=== PATIENT | female | born 2005 | race African-American/Black ===

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

== ENCOUNTER 2023-03-09 14:26 | Outpatient (AMB) | payer BC, SELFPAY ==
--- NOTE | 2023-03-09 14:27 | A.OFFVIS_ITS ---
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 Accompanied by: Self / Same As Patient Allergies Seasonal Allergies Allergy (Mild, Verified 03/09/23 14:28) Itchy Eyes pet dander Allergy (Mild, Uncoded 03/09/23 14:28) itchy Medication List - Last Reconciled 03/09/23 by Etelvina Ramirez CNM etonogestrel-ethinyl estradiol 0.12-0.015 mg/24 hr 1 vag ring vaginal Q4W 3 weeks Is last menstrual period known: Yes Last menstrual period: 02/26/23 HPI 3 month CRISTAL HPI Details Patient is here for test of cure for chlamydia she is using the NuvaRing and feeling very good about it she does her best to keep it on schedule and the only thing in reviewing past uses that she got her last period on the 1 day after removing the NuvaRing in she inserted the new NuvaRing on the . (I reminded the patient only leave a NuvaRing out for 7 days before replacing the new 1 so she does not increase her chance of getting . Reviewed whether not her partner said been treated and the person she thinks she acquired the chlamydia from said that he went and got tested and was negative but she is not planning to be with him discussed condoms for safer sex at any rate. PFSH Medical History Depression Family History Family/Other Breast cancer Female Reproductive History Menstrual Age of Menarche: 8 Date of last menstrual period: 02/26/23 Physical Exam Vital Signs: BMI result Body Mass Index 27.8 External Female Exam: normal external appearance and normal appearance of the urethra Speculum Exam - Vagina: normal appearance of the vagina and normal vaginal discharge Speculum Exam - Cervix: normal appearance of the cervix and Cervical os closed Assessment & Plan Assessment & Plan (1) Chlamydia infection: Comment: Diagnosed and treated at her school at the beginning of November 2022; test of cure done 12/21/2022 was positive. Patient was treated 12/22/2022 and because there was a possibility of from unprotected sex she was treated with Zithromax instead of doxy Cyclen. Test of cure is scheduled for 03/09/2023. Code(s): A74.9 - Chlamydial infection, unspecified (2) Screen for sexually transmitted diseases: Code(s): Z11.3 - Encounter for screening for infections with a predominantly sexual mode of transmission (3) Encounter for surveillance of nuvaring: Code(s): Z30.49 - Encounter for surveillance of other contraceptives Plan Patient is here for test of cure for chlamydia she is using the NuvaRing and feeling very good about it she does her best to keep it on schedule and the only thing in reviewing past uses that she got her last period on the 1 day after removing the NuvaRing in she inserted the new NuvaRing on the . (I reminded the patient only leave a NuvaRing out for 7 days before replacing the new 1 so she does not increase her chance of getting . Reviewed whether not her partner said been treated and the person she thinks she acquired the chlamydia from said that he went and got tested and was negative but she is not planning to be with him discussed condoms for safer sex at any rate. Orders: Orders Bacterial Vaginosis Panel Today Z11.3 - Encounter for screening for infections with a predominantly sexual mode of transmission CT NG by PCR Today Z11.3 - Encounter for screening for infections with a predominantly sexual mode of transmission Medications: Refilled etonogestrel-ethinyl estradiol 0.12-0.015 mg/[address] for 3 weeks of a 4-week cycle( 21 days in, 7 days out....) 1 vag ring vaginal Q4W 3 weeks 3 ea 4RF Coding Level of Care Code Est Pt Level 3 (67591) Diagnoses Chlamydia infection A74.9 Screen for sexually transmitted diseases Z11.3 Encounter for surveillance of nuvaring Z30.49
[2023-03-09 14:28] VITALS: BMI 27.8
== END 2023-03-09 15:05 | disposition home or self-care (01) ==
LOC: HO.HWS 14:27
PROVIDERS: PCP Internal Medicine; Visit Provider Advanced Practice Midwife
DX: A74.9 Chlamydial infection, unspecified (principal); Z30.49 Encounter for surveillance of other contraceptives
CPT/HCPCS: 99213

== ENCOUNTER 2023-03-09 14:26 | Outpatient (REF) | payer BC, SELFPAY | END 2023-03-09 14:27 | disposition home or self-care (01) | LOC: HO.LNP 14:26 | PROVIDERS: PCP Internal Medicine; Visit Provider Advanced Practice Midwife | DX: Z13.89 Encounter for screening for other disorder (principal) ==

== ENCOUNTER 2023-03-09 14:51 | Outpatient (REF) | payer BC, SELFPAY ==
[2023-03-10 04:24] LABS: CT PCR NOT DETECTED (Not Detect.); NG PCR NOT DETECTED (Not Detect.)
[2023-03-11 09:08] LABS: BV Int Neg Control Negative (Negative); BV Int Pos Control Positive (Positive)
== END 2023-03-09 14:52 | disposition home or self-care (01) ==
LOC: HO.LAB 14:51
PROVIDERS: Visit Provider Advanced Practice Midwife
DX: Z20.2 Contact with and (suspected) exposure to infections with a predominantly sexual mode of transmission (principal)
CPT/HCPCS: 0353U; 87480; 87510; 87660

== ENCOUNTER 2023-08-05 08:20 | Outpatient (AMB) | payer BC, SELFPAY ==
[2023-08-05 09:07] VITALS: BP 108/60; BMI 21.2
--- NOTE | 2023-08-05 09:07 | A.OFFVIS_ITS ---
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 She reports a new soap with oatmeal/giraldo butter, otherwise no other new detergents lotions shaving products. Last intimate a month ago. She denies any pelvic pain or urinary symptoms. REPLACED BY [facility] Medical History Depression Family History Family/Other Breast cancer Female Reproductive History Menstrual Age of Menarche: 8 Date of last menstrual period: 07/23/23 Review of Systems Const All systems reviewed & are unremarkable except as noted in HPI and below Physical Exam Vital Signs: Last Vital Signs BP 108/60 08/05/23 09:07 BMI result Body Mass Index 21.2 Const General: cooperative, healthy appearing and no acute distress Orientation/consciousness: patient oriented x3 GI Inspection: Yes normal to inspection Palpation (GI): Soft to palpation and Other GI palpation findings present (Nontender) Rectal Exam - Female: visual inspection normal Other: Bilateral mild labial erythema, and mild edema General: Yes bladder normal to palpation External Female Exam: normal appearance of the urethra Speculum Exam - Vagina: normal appearance of the vagina, normal palpation and normal vaginal discharge Speculum Exam - Cervix: normal appearance of the cervix and normal palpation Bimanual exam- vagina & uterus: normal bimanual exam, normal palpation, uterine size normal, bladder normal to palpation, normal palpation, uterine shape normal and non-tender Bimanual Exam- Adnexa, other: normal adnexae Neuro General: patient oriented x3 Assessment & Plan Assessment & Plan (1) Vaginal irritation: Code(s): N89.8 - Other specified noninflammatory disorders of vagina Plan Instructions: Clean with warm water, no soaps, scented products. Use a cool cloth to the area several times a day if swollen and/or uncomfortable. Wear loose, cotton underclothes, avoid tight outer clothing. Air when possible. No coitus until well healed. Complete all medications as prescribed. Await final pending results for any changes in the plan of care. Call the office if there is no improvement in 24-48hrs., or if worsening symptoms. This note is constructed using voice recognition software. While every effort has been made to ensure accuracy, mannequin refinisher errors may have been included. Orders: Orders CT NG by PCR Today N89.8 - Other specified noninflammatory disorders of vagina Bacterial Vaginosis Panel Today N89.8 - Other specified noninflammatory disorders of vagina Medications: New fluconazole 150 mg PO ONCE 1 day 1 tab 0RF personal clotrimazole-betamethasone 1-0.05 % 1 appl topical BID 7 days 45 grams 0RF itching Coding Level of Care Code Est Pt Level 3 (25336) Diagnoses Vaginal irritation N89.8
== END 2023-08-05 09:20 | disposition home or self-care (01) ==
LOC: HO.HWSW 08:20
PROVIDERS: PCP Internal Medicine; Visit Provider Advanced Practice Midwife
DX: N89.8 Other specified noninflammatory disorders of vagina (principal)
CPT/HCPCS: 99213

== ENCOUNTER 2023-08-05 08:20 | Outpatient (REF) | payer BC, SELFPAY ==
[2023-08-05 14:01] LABS: CT PCR NOT DETECTED (Not Detect.); NG PCR NOT DETECTED (Not Detect.)
[2023-08-06 15:22] LABS: BV Int Neg Control Negative (Negative); BV Int Pos Control Positive (Positive)
== END 2023-08-05 08:21 | disposition home or self-care (01) ==
LOC: HO.LNP 08:20
PROVIDERS: PCP Internal Medicine; Visit Provider Advanced Practice Midwife
DX: N89.8 Other specified noninflammatory disorders of vagina (principal)
CPT/HCPCS: 0353U; 87480; 87510; 87660

== ENCOUNTER 2023-12-29 14:47 | Outpatient (AMB) | payer OTHER, MEDICAID, SELFPAY ==
[2023-12-29 15:01] VITALS: BP 102/62; BMI 20.7
--- NOTE | 2023-12-29 15:01 | A.OFFVIS_ITS ---
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 Hand Required: No Information Interpreted: clinical only Commercial Fisher: Commercial Fisher Present Allergies Seasonal Allergies Allergy (Mild, Verified 12/29/23 15:01) Itchy Eyes pet dander Allergy (Mild, Uncoded 12/29/23 15:01) itchy Medication List - Last Reconciled 12/29/23 by Etelvina Ramirez CNM etonogestrel-ethinyl estradiol 0.12-0.015 mg/24 hr 1 vag ring vaginal Q4W 3 weeks fluconazole 150 mg PO ONCE 1 day Is last menstrual period known: Yes Last menstrual period: 12/28/23 HPI HPI 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 She uses the NuvaRing and she took it out Wednesday and the periods started yesterday right on time. She would rather not do the physical exam today because of her. She was last sexually active in November. She has contemplated switching to pills again because 1 time she had a scare in November where after she had sex she could not find the NuvaRing and thought maybe it had fallen out and turns out it was just way posterior in her vagina and was little hard to get out. Lengthy discussion today about the possibility of switching to pills which she could totally do if she wished by starting a new pack pills on Wednesday but after much thinking about it she decided to stick with the NuvaRing for now. She may decide to take a break from it for a while but lengthy discussion also took place about thinking through the thought process of how she would protect herself from both STIs and and when she would resume control if she were simply thinking about talking? to somebody. Also discussed timing of the start if she had taken a break from taking the NuvaRing to start it at the closest to the beginning of the next period As possible. She has no particular worries about STIs today and since she really rather not do the exam today we will reschedule her annual exam for February when she has turned 19 and then we can do her 1st Pap smear at the same time. For now she is decided to continue with the NuvaRing and I will send refills of her NuvaRing to her pharmacy and in addition in case she still feels itchy at the end of her. She may use Monistat 7 cream I discussed the benefits of Monistat 7 versus the Monistat 1 which is what her mother for which she said burned it is more concentrated amount of the medication and that is sometimes can contribute to burning also discussed be effects of actually having been scratching. Also get discussed strategies for remembering to take a pill at the same time every day and if she wants to test herself out she could try taking a multivitamin or something else rather benign every single day at the same time every day and use that as practice for taking a control pill in the future. It is completely her choice in the end she decided today to stick with the NuvaRing. We will see her in February. [facility] Medical History Depression Family History Family/Other Breast cancer Female Reproductive History Menstrual Age of Menarche: 8 Duration of menses: 3-5 days Date of last menstrual period: 12/28/23 control method: vaginal ring Full term: 0 History of abnormal pap smear: No (no previous pap) Physical Exam Vital Signs: Last Vital Signs BP 102/62 12/29/23 15:01 BMI result Body Mass Index 20.7 Const Other: Today because she has. And it is kind of heavy she is on the 2nd day of her. Extensive talking visit done and will schedule her annual exam for February when she turns 19 and then we can do her 1st Pap smear and retest for STIs at that visit. Assessment & Plan Assessment & Plan (1) Encounter for surveillance of nuvaring: Code(s): Z30.49 - Encounter for surveillance of other contraceptives Category: Medical (2) Counseling for initiation of control method: Comment: Restart on the NuvaRing with next menses Code(s): Z30.09 - Encounter for other general counseling and advice on contraception Category: Medical (3) Vaginal itching: Comment: It is getting better she thinks it was yeast will send prescription for Monistat 7 that she can have a p.r.n. use declines exam today because of heavy menses. 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 She uses the NuvaRing and she took it out Wednesday and the periods started yesterday right on time. She would rather not do the physical exam today because of her. She was last sexually active in November. She has contemplated switching to pills again because 1 time she had a scare in November where after she had sex she could not find the NuvaRing and thought maybe it had fallen out and turns out it was just way posterior in her vagina and was little hard to get out. Lengthy discussion today about the possibility of switching to pills which she could totally do if she wished by starting a new pack pills on Wednesday but after much thinking about it she decided to stick with the NuvaRing for now. She may decide to take a break from it for a while but lengthy discussion also took place about thinking through the thought process of how she would protect herself from both STIs and and when she would resume control if she were simply thinking about talking? to somebody. Also discussed timing of the start if she had taken a break from taking the NuvaRing to start it at the closest to the beginning of the next period As possible. She has no particular worries about STIs today and since she really rather not do the exam today we will reschedule her annual exam for February when she has turned 19 and then we can do her 1st Pap smear at the same time. For now she is decided to continue with the NuvaRing and I will send refills of her NuvaRing to her pharmacy and in addition in case she still feels itchy at the end of her. She may use Monistat 7 cream I discussed the benefits of Monistat 7 versus the Monistat 1 which is what her mother for which she said burned it is more concentrated amount of the medication and that is sometimes can contribute to burning also discussed be effects of actually having been scratching. Also get discussed strategies for remembering to take a pill at the same time every day and if she wants to test herself out she could try taking a multivitamin or something else rather benign every single day at the same time every day and use that as practice for taking a control pill in the future. It is completely her choice in the end she decided today to stick with the NuvaRing. We will see her in February. Medications: New miconazole nitrate 2% (Miconazole-7) 1 appful vaginal BEDTIME 7 days 45 grams 0RF Refilled etonogestrel-ethinyl estradiol 0.12-0.015 mg/[address] for 3 weeks of a 4-week cycle( 21 days in, 7 days out....) 1 vag ring vaginal Q4W 3 weeks 3 ea 4RF Coding Level of Care Code Est Pt Level 3 (80451) Diagnoses Encounter for surveillance of nuvaring Z30.49 Counseling for initiation of control method Z30.09 Vaginal itching N89.8
== END 2023-12-29 15:40 | disposition home or self-care (01) ==
LOC: HO.HWSM 14:47
PROVIDERS: PCP Internal Medicine; Visit Provider Advanced Practice Midwife
DX: Z30.49 Encounter for surveillance of other contraceptives (principal); Z30.09 Encounter for other general counseling and advice on contraception; N89.8 Other specified noninflammatory disorders of vagina
CPT/HCPCS: 99213

== ENCOUNTER → 2023-12-29 14:47 | Outpatient (BNVA) | payer OTHER, MEDICAID, SELFPAY | PROVIDERS: PCP Internal Medicine; Visit Provider Advanced Practice Midwife ==

== ENCOUNTER 2024-05-10 14:45 | Outpatient (REF) | payer OTHER, SELFPAY | END 2024-05-10 14:46 | disposition home or self-care (01) | LOC: HO.LNP 14:45 | PROVIDERS: PCP Internal Medicine; Visit Provider Obstetrics & Gynecology | DX: N93.9 Abnormal uterine and vaginal bleeding, unspecified (principal); Z30.09 Encounter for other general counseling and advice on contraception | CPT/HCPCS: 99212 ==

== ENCOUNTER 2024-05-10 14:45 | Outpatient (AMB) | payer OTHER, SELFPAY ==
[2024-05-10 14:56] VITALS: BP 102/60; BMI 20.6
--- NOTE | 2024-05-10 14:56 | MHC.OFFVIS ---
Vital Signs 05/10/24 14:56 Height 5 ft 10 in Weight 143 lb 4.807 oz BMI 20.6 BP 102/60 Intake Visit Reasons: Control consult Allergies Seasonal Allergies Allergy (Mild, Verified 12/29/23 15:01) Itchy Eyes pet dander Allergy (Mild, Uncoded 12/29/23 15:01) itchy HPI Comments Details: Presenting discuss different options of control. The patient had a medical in 03/01 since then has been continuously having vaginal bleeding, and her menstrual cycle got heavier over the last 2 week associated with passage of blood clots and pelvic cramping. No fever or chills PFSH Medical History Depression Family History Family/Other Breast cancer Female Reproductive History Menstrual Age of Menarche: 8 Review of Systems Const All systems reviewed & are unremarkable except as noted in HPI and below Physical Exam Vital Signs: Last Vital Signs BP 102/60 05/10/24 14:56 BMI result Body Mass Index 20.6 General: Yes no CVA tenderness External Female Exam: normal external appearance and normal appearance of the urethra Speculum Exam - Vagina: normal appearance of the vagina, normal palpation, no lesions, no masses and other (No evidence of active vaginal bleeding) Speculum Exam - Cervix: normal appearance of the cervix, normal palpation, no lesions, no masses and nontender Bimanual exam- vagina & uterus: normal bimanual exam, normal palpation, uterine size normal, normal palpation, uterine shape normal, No Cervical tenderness present and non-tender Bimanual Exam- Adnexa, other: normal adnexae Back/Spine/Pelvis Back: no CVA tenderness Assessment & Plan Assessment & Plan (1) Abnormal uterine bleeding (AUB): Code(s): N93.9 - Abnormal uterine and vaginal bleeding, unspecified Category: Medical Plan: Urine test done in the office was negative. Pap smear done, GC and chlamydia taken CBC, TSH, prolactin, HCG, and pelvic ultrasound ordered. Discussed with the patient the different causes of abnormal bleeding including thyroid disorders, uterine and ovarian pathology and other potential causes. Discussed with the patient the work up including CBC (to r/o anemia), TSH, prolactin, pelvic Ultrasound. All questions answered and the patient verbalized understanding. Instructed the patient to schedule an appointment for an endometrial biopsy in 2 weeks. (2) Family planning: Code(s): Z30.09 - Encounter for other general counseling and advice on contraception Category: Social Hx Plan: Discussed with the patient the different options of control including control pills/Nuvaring, DMPA, IUD (Mirena, Paraguard), sterilization. All the pros, cons, risks and benefits of each were discussed with the patient. The patient decided to go ahead with Nuvaring so a more detailed discussion re: bcp including mechanism of action, benefits ( Regular menses, less dysmenorrhea, less risk of ovarian cancer, ...), risks ( DVT, PE, Strokes, AR, increased breast ca, others). Instructions were given to use a backup method for contraception x 1st 2 week. Nuvaring x 3 weeks then 1 week off. Instructions given to the pt to discard it if out for >4 hours and start a new ring with 2 weeks back up method for contraception and to schedule a 3 month follow-up appointment. Orders: Orders HCG Quantitative Today N93.9 - Abnormal uterine and vaginal bleeding, unspecified Complete Blood Count no Diff Today N93.9 - Abnormal uterine and vaginal bleeding, unspecified TSH reflex Free T4 Today N93.9 - Abnormal uterine and vaginal bleeding, unspecified Prolactin Today N93.9 - Abnormal uterine and vaginal bleeding, unspecified US pelvic and transvaginal Today N93.9 - Abnormal uterine and vaginal bleeding, unspecified Medications: New etonogestrel-ethinyl estradiol 0.12-0.015 mg/24 hr (NuvaRing) leave in place for 3 weeks of a 4-week cycle 1 vag ring vaginal Q4W 3 ea 0RF Coding Level of Care Code Est Pt Level 3 (22219) Diagnoses Abnormal uterine bleeding (AUB) N93.9 Family planning Z30.09
== END 2024-05-10 15:30 | disposition home or self-care (01) ==
PROVIDERS: PCP Internal Medicine; Visit Provider Obstetrics & Gynecology
DX: N93.9 Abnormal uterine and vaginal bleeding, unspecified (principal); Z30.09 Encounter for other general counseling and advice on contraception
CPT/HCPCS: 99213

== ENCOUNTER 2024-05-10 15:36 | Outpatient (REF) | payer OTHER, SELFPAY ==
[2024-05-10 16:48] LABS: Hematocrit 31.6 % (37.0-47.0); Hemoglobin 9.8 g/dl (12.0-16.0); Mean Corpuscular Hemoglobin 25.1 pg (27.0-33.0); Mean Corpuscular Volume 80.8 fL (80.0-98.0); Mean Platelet Volume 10.9 fL (9.4-12.3); Platelet Count 339 X10*3/uL (160-400); Red Blood Count 3.91 X10*6/uL (4.20-5.50); Red Cell Distribution Width 14.1 % (11.0-16.0); White Blood Count 6.4 X10*3/uL (4.8-10.8)
[2024-05-10 18:22] LABS: HCG Quantitative < 2 mIU/mL; TSH reflex Free T4 0.66 uIU/mL (0.32-4.0)
[2024-05-11 22:17] LABS: Prolactin 6.4 ng/mL
[2024-05-12 05:57] LABS: CT PCR NOT DETECTED (Not Detect.); NG PCR NOT DETECTED (Not Detect.)
[2024-05-23 08:13] LABS: HPV 16,18/45 NOT DETECTED (NOT DETECTED); HPV mRNA E6/E7 Detected (Not Detected)
== END 2024-05-10 15:37 | disposition home or self-care (01) ==
LOC: HO.LAB 15:36
PROVIDERS: PCP Internal Medicine; Visit Provider Obstetrics & Gynecology
DX: N93.9 Abnormal uterine and vaginal bleeding, unspecified (principal); R87.810 Cervical high risk human papillomavirus (HPV) DNA test positive
CPT/HCPCS: 84146; 84443; 84702; 85027; 87491; 87591; 87624; 87625; 88175

== ENCOUNTER 2024-05-29 14:52 | Outpatient (REF) | payer OTHER, SELFPAY ==
--- NOTE | ~2024-05-29 | US_ITS ---
EXAMINATION: US PELVIS CLINICAL INFORMATION: Abnormal uterine bleeding since elective on 02/25 COMPARISON: ELECTIVE TECHNIQUE: Ultrasound of the pelvis is performed using both transabdominal and transvaginal transducers along with Doppler. Transvaginal imaging is performed due to inadequate visualization transabdominally. FINDINGS: Uterus: Uterus is anteverted measuring 6.3 x 2.1 x 3.4 cm Endometrium is thickened measuring 2.1 cm. Within the endometrium, 1.5 x 1.4 x 1.6 cm hypoechoic irregular hyperemic mass is identified. Adnexa: Both ovaries are visualized. There is normal color flow to the adnexa. Right ovary measures 4.0 x 1.9 x 1.8 cm. Uterine volume is 7.3 mL Left ovary measures 4.6 x 2.8 x 3.4 cm. Urine volume is 22.4 mm. There is a complex thick and solid 2.2 x 2.0 x 2.2 cm structure within the left ovary. Small amount of free fluid present. US/US pelvic and transvaginal IMPRESSION: 1. 1.6 cm endometrial mass, question retained products of conception. Endometrial mass not excluded. Correlate with hCG levels. 2. 2.2 cm complex left ovarian cyst. Consider short-term sonographic follow-up. Electronically signed by: Jennifer Lara MD 05/30/2024 10:26 AM EDT
== END 2024-05-29 14:53 | disposition home or self-care (01) ==
LOC: HO.US 14:52
PROVIDERS: PCP Internal Medicine; Visit Provider Obstetrics & Gynecology
DX: N93.9 Abnormal uterine and vaginal bleeding, unspecified (principal)
CPT/HCPCS: 76830; 76856

== ENCOUNTER 2024-05-31 10:24 | Outpatient (AMB) | payer OTHER, SELFPAY ==
--- NOTE | 2024-05-31 10:48 | A.OFFVIS_ITS ---
Vital Signs 05/31/24 10:50 Height 5 ft 10 in Weight 143 lb 4.807 oz BMI 20.6 BP 108/62 Intake Visit Reasons: pre op [id number] Tank Crewman Required: No Information Interpreted: non-clinical & clinical Customer Service Technician: Customer Service Technician Present (Leanne TERRELL) Allergies Seasonal Allergies Allergy (Mild, Verified 12/29/23 15:01) Itchy Eyes pet dander Allergy (Mild, Uncoded 12/29/23 15:01) itchy Is last menstrual period known: Yes Last menstrual period: 06/06/20 Post menopausal: No Patient : No Do you need a note to return to daycare/school/sports/work: Yes (for surgery on wednesday) HPI Comments Details: The patient is presenting for follow-up to discuss the results of her abnormal uterine bleeding workup and options of treatment. The following workup was done.: H&H= 9.8/31.6, the patient is on iron sulfate 325 mg p.o. q.d. TSH, prolactin, hCG, GC and chlamydia were negative. Co testing was done was ascus/HPV E6 E7 positive. Pelvic ultrasound showed the following: IMPRESSION: 1. 1.6 cm endometrial mass, question retained products of conception. Endometrial mass not excluded. Correlate with hCG levels. 2. 2.2 cm complex left ovarian cyst. Consider short-term sonographic follow-up [facility] Medical History Depression Family History Family/Other Breast cancer Female Reproductive History Menstrual Age of Menarche: 8 Date of last menstrual period: 06/06/20 Total pregnancies: 2 Full term: 2 Review of Systems Card Reports as per HPI and Reports no additional complaints Resp Reports as per HPI and Reports no additional complaints GI Reports as per HPI and Reports no additional complaints Reports as per HPI Physical Exam Vital Signs: Last Vital Signs BP 108/62 05/31/24 10:50 BMI result Body Mass Index 20.6 Const General: cooperative, healthy appearing and comfortable Resp Effort & Inspection: normal respiratory effort Auscultation: clear to auscultation bilaterally Percussion: percussion normal Cardio Palpation: normal PMI Rate: regular rate Rhythm: regular rhythm Heart sounds: no murmurs and no rubs Peripheral pulses: Peripheral pulses 2+ throughout GI Inspection: Yes normal to inspection Palpation (GI): Soft to palpation, nontender, no guarding, not rigid and No hepatosplenomegaly present Percussion: Yes normal to percussion Auscultation: normal bowel sounds Rectal Exam - Female: deferred Assessment & Plan Assessment & Plan (1) Retained products of conception following : Code(s): O03.4 - Incomplete spontaneous without complication Category: Medical Plan: Discussed with the patient the finding on ultrasound showing a 1.6 cm endometrial mass possible retained products of conception, given the patient history of recent medical and since then abnormal uterine bleeding started, recommended suction D&C under ultrasound guidance. All pros, cons, risks and benefits were discussed with the patient and the patient the decided to go ahead with Suction D&C under ultrasound guidance. so a more detailed discussion about the procedure was carried on with the patient including the technique, risks including but not limited to : bleeding, inf ection, uterine perforation, injury to blood vessels, bowels, ureters, bladder, possible need for blood transfusion with all its risks ( HIV, Hep b or C, anaphylaxis reactions), possible need for laparoscopy, laparotomy, or hysterectomy, possible , thromboembolic events, possibility of a negative impact on future fertility because of scar tissue development inside the uterus; alternatives of this option were discussed with the patient including but not limited to, medical termination of or doing nothing. The patient decided to go ahead with Suction D&C and signed the consent. All questions answered, the patient verbalized understanding and agreed with the plan. Doxycycline 200 mg p.o. preop given to the patient. Ultrasound notified. Type and screen sent. Instructions given the patient to schedule a 2 week postoperative appointment. This note was generated with a voice recognition program. Some errors may have been overlooked during the review of this note. Sometimes these errors may affect the content or meaning of a given sentence. (2) Complex ovarian cyst: Code(s): N83.299 - Other ovarian cyst, unspecified side Category: Medical Plan: Discussed with the patient the complex ovarian cyst by ultrasound. Discussed with the patient the Ultrasound findings, the main limitation of transvaginal ultrasonography alone as a diagnostic tool to distinguish benign from malignant masses relates to its lack of specificity and low positive predictive value for cancer. The differential diagnosis discussed with the patient includes the following but not limited to: benign and malignant gynecological and non-gynecological causes. Discussed with the patient options of treatment, including laparoscopy ovarian cystectomy/oophorectomy vs. expectant management with repeat US in repeating pelvic US in 12 weeks from previous US. If the ovarian complex cyst is persistent larger and / or more complex looking will refer to gynecologic Oncology. All pros, cons, risks and benefits of each approach were discussed with the patient including but not limited to a delay in the diagnosis and treatment of ovarian cancer affecting the prognosis; The patient decided to go ahead with expectant management. Instructions given the patient to schedule a 3 months follow-up ultrasound appointment. All questions were answered & the patient verbalized understanding and agreed with the plan. (3) ASCUS with positive high risk HPV cervical: Code(s): R87.610 - Atypical squamous cells of undetermined significance on cytologic smear of cervix (ASC-US); R87.810 - Cervical high risk human papillomavirus (HPV) DNA test positive Category: Medical Plan: Discussed with the patient ASCCP guidelines for [age]-year-old ascus HPV E6/ E7 positive, recommended to repeat cytology in 12 months. Instructions given the patient to schedule a Pap smear in 12 months Orders: Orders US pelvic and transvaginal 3 Months N83.299 - Other ovarian cyst, unspecified side Coding Level of Care Code Est Pt Level 3 (82691) Diagnoses Retained products of conception following O03.4 Complex ovarian cyst N83.299 ASCUS with positive high risk HPV cervical R87.610; R87.810
[2024-05-31 10:50] VITALS: BP 108/62; BMI 20.6
== END 2024-05-31 11:09 | disposition home or self-care (01) ==
LOC: HO.HWS 10:24
PROVIDERS: PCP Internal Medicine; Visit Provider Obstetrics & Gynecology
DX: O03.4 Incomplete spontaneous abortion without complication (principal); N83.299 Other ovarian cyst, unspecified side; R87.610 Atypical squamous cells of undetermined significance on cytologic smear of cervix (ASC-US); R87.810 Cervical high risk human papillomavirus (HPV) DNA test positive
CPT/HCPCS: 99213

== ENCOUNTER → 2024-05-31 10:24 | Outpatient (BNVA) | payer OTHER, SELFPAY | PROVIDERS: PCP Internal Medicine; Visit Provider Obstetrics & Gynecology | DX: O03.4 Incomplete spontaneous abortion without complication (principal); N83.299 Other ovarian cyst, unspecified side; R87.610 Atypical squamous cells of undetermined significance on cytologic smear of cervix (ASC-US); R87.810 Cervical high risk human papillomavirus (HPV) DNA test positive | CPT/HCPCS: 99212 ==

== ENCOUNTER → 2024-06-01 12:41 | Outpatient (BNV) | payer OTHER, SELFPAY | PROVIDERS: PCP Internal Medicine; Visit Provider Obstetrics & Gynecology | DX: O03.4 Incomplete spontaneous abortion without complication (principal) | CPT/HCPCS: 59812 ==

== ENCOUNTER → 2024-06-01 12:41 | Day surgery (SDC) | payer OTHER, SELFPAY ==
--- NOTE | ~2024-06-01 | US_ITS ---
EXAMINATION: US PELVIC, LIMITED/FOLLOW UP CLINICAL INFORMATION: Intraoperative suction D&C. COMPARISON: Pelvic ultrasound dated 05/29/2024. TECHNIQUE: Intraoperative transabdominal ultrasound obtained during a D&C. FINDINGS/ US/US pelvic limited IMPRESSION: Pre and postprocedure transabdominal ultrasound of the uterus demonstrates interval decrease with near complete resolution of heterogeneous material within the endometrial cavity. This measured up to 1.3 cm before the procedure in approximately 0.5 cm following the procedure. There does not appear to be significant retained products of conception on the final images. Please refer to intraoperative report by Dr. Araiza for further detail. Electronically signed by: Dillon Currie MD 06/02/2024 09:00 AM EDT
[2024-06-01 13:16] VITALS: BMI 21.5
[2024-06-01 13:20] LABS: UPreg QC Valid YES
[2024-06-01 13:22] LABS: Urine Pregnancy NEGATIVE (NEGATIVE)
[2024-06-01] MEDS: Doxycycline Monohydrate 100 MG CAPSULE 200 MG PO (13:49)
--- NOTE | 2024-06-01 13:50 | HO.ANESPROP2 ---
HPI - Anesthesia Eval Consult details Narrative: 19 yo F presenting for suction D&C due to retained products of conception. PMFSH Active Problems Active Problems: All Active Problems ASCUS with positive high risk HPV cervical (Acute) Complex ovarian cyst (Acute) Retained products of conception following (Acute) Family planning (Acute) Abnormal uterine bleeding (AUB) (Acute) Vaginal itching (Acute) Encounter for surveillance of nuvaring (Acute) Chlamydia infection (Acute) Vaginal discharge (Acute) Counseling for initiation of control method (Acute) Screen for sexually transmitted diseases (Acute) Past Medical History Medical History Depression Family History Family History Family/Other Breast cancer Family history of problems with anesthesia: No Surgical History History of Problems with Anesthesia: No Social History Social History Are you a primary daycare provider to a significant other at home: No Do you presently have visiting nurse or other home services: No Patient Tobacco Use Status: Never used Tobacco Use of substances other than those prescribed or required for medical reasons: No Have you been hit, kicked, punched, or otherwise hurt by someone within the past year? If so, by whom?: No Advance Directives: No Advance Directives Information Provided: Yes Recently lost weight without trying: No Nutrition Risks: No Nutritional Risk Patient : No FDLMP: 04/21/24 : No Poor oral hygiene: No Meds Allergies Allergy/AdvReac Type Severity Reaction Status Date / Time Seasonal Allergies Allergy Mild Itchy Eyes Verified 06/01/24 13:07 pet dander Allergy Mild itchy Uncoded 12/29/23 15:01 Active Medications: Current Medications Lactated Ringer's (Lr) 1,000 mls @ 50 mls/hr IVCONT .Q20H TOM Last Admin: 06/01/24 13:54 Dose: 50 mls/hr Home Medications ?Medication ?Instructions ?Recorded ?Confirmed ?Last Taken ?Type albuterol 90 mcg/actuation aerosol 90 mcg inhalation 06/01/24 Unknown History inhaler diphenhydramine HCl 50 mg capsule 50 mg PO BEDTIME PRN allergies 06/01/24 06/01/24 Unknown History fluticasone propionate 110 110 inh inhalation asthma 06/01/24 Unknown History mcg/actuation HFA aerosol inhaler ibuprofen 800 mg tablet 800 mg PO Q8H PRN moderate pain 06/01/24 06/01/24 Unknown History loratadine 10 mg tablet (Claritin) 10 mg PO DAILY allergies 06/01/24 06/01/24 Unknown History Exam Exam Date and Time: 06/01/24 1350 Height,Weight and Vital Signs: Height 5 ft 10 in Weight 68.039 kg Pertinent Lab Results Pertinent Lab Results: Laboratory Tests 06/01/24 12:55 Urine Test NEGATIVE Airway Mallampati Class: I TM Dist: >3cm Neck ROM: Full Loose/Missing/Broken Teeth: No (patient denies any loose or broken teeth) Heart: S1S2 Lungs: CTAB Assessment and Plan Assessment Anesthesia Assessment: Anesthesia Plan Discussed and Chart Reviewed Final Anesthetic Review Family History of Problems with Anesthesia: No History of Problems with Anesthesia: No NPO: Yes ASA Class: II Final Preanesthetic Review: No Changes in Pt Med Stat, Meds/Allgs Chart Reviewed, Consent Obtained/Reviewed and Anes Risks/Benef Reviewed Patient Risk: Low Procedure Risk: Low Anesthetic Plan Anesthetic Plan: MAC: and Agree w/ Assess. and Plan Disposition: Standard PACU
--- NOTE | 2024-06-01 13:52 | MHC.SHP ---
Pre-Procedural Eval Section A - 24 Hr Update-Section A only Date of Service: 06/01/24 The patient is an INPATIENT: No Changes since office visit: No Cold of Flu in the past 2 weeks, No New Medical Problems, No Changes in Medication and No Patient answered all questions The patient has been examined within 24 hours of the surgical procedure. The History & Physical has been completed within 30 days and I have reviewed it.: Yes Section B - Complete if H&P > 30 days Chief Complaint: Incomplete spontaneous GUIDANCE IN OR @2P Allergies: Allergies Allergy/AdvReac Type Severity Reaction Status Date / Time Seasonal Allergies Allergy Mild Itchy Eyes Verified 06/01/24 13:07 pet dander Allergy Mild itchy Uncoded 12/29/23 15:01 Plan Diagnosis/Plan: Unchanged I have reviewed the history and physical and performed a pertinent physical examination on my patient. No changes have occurred unless specified. Time Spent With Patient Time: Total time managing care of this patient today ____ minutes.
[2024-06-01] MEDS: Lactated Ringers 1,000 ML 50 ML IVCONT (13:54)
--- NOTE | 2024-06-01 14:20 | PM.OP ---
Brief Operative Note Date of Service: 06/01/24 Pre-op diagnosis: Retained products of conception Post-op diagnosis: same Procedure: Suction D&C Surgeon: Kendell Araiza MD Anesthesia: MAC Was an Certifed Refrigeration Operator used for this Procedure?: No Estimated blood loss (mL): 10 Pathology: other (Retained Products of conception) Condition: stable Disposition: PACU
--- NOTE | 2024-06-01 14:21 | P.OP_ITS ---
Operative Note Operative Note Date of Service: 06/01/24 Narrative: Preop diagnosis: Retained products of conception Operation: suction D and C Postop diagnosis: The same EBL: Minimal Anesthesia: LGMA Facilities And Grounds Director: None Pathology: Retained products Products of conception Procedure: The patient was put in a dorsal distal mid position was scrubbed and draped in the usual sterile fashion. A sterile speculum was inserted inside the patient's vagina the anterior lip of the cervix was grasped with single-tooth tenaculum the cervix was dilated up to 7 mm. Under ultrasonographic guidance flexible 7. Suction tip was introduced inside the patient ran cavity till the fundus was hit then turning the suction 360 degrees around products of conception was sucked out toward the uterine cavity. The suction tip was taken out of the patient uterine cavity sharp curettings was followed in 4 quadrants of the uterus till a gritty feeling was felt. The suction tip was reintroduced under ultrasonographic guidance and intrauterine blood was sucked. The suction tip was taken out. Single-tooth tenaculum was removed hemostasis assured using pressure. The patient tolerated the procedure well and was transferred to the PACU in a stable condition.
[2024-06-01 14:32] VITALS: BP 105/58; PULSE 70; RESP 16; TEMP 36.6; O2SAT 100
[2024-06-01 14:35] VITALS: BP 101/59; PULSE 66; RESP 16; O2SAT 99
[2024-06-01 14:40] VITALS: BP 110/60; PULSE 66; RESP 16; O2SAT 100
[2024-06-01 14:55] VITALS: BP 109/63; PULSE 60; RESP 16; O2SAT 100
[2024-06-01 15:10] VITALS: BP 109/72; PULSE 81; RESP 16; O2SAT 100
[2024-06-01 15:24] VITALS: BP 110/62; RESP 16; O2SAT 100
== END | disposition home or self-care (01) ==
PROVIDERS: PCP Internal Medicine; Visit Provider Obstetrics & Gynecology
PROC: (CPT 59812; principal; 2024-06-01 14:00)
DX: O03.4 Incomplete spontaneous abortion without complication (principal); N83.299 Other ovarian cyst, unspecified side; F32.A Depression, unspecified; J30.2 Other seasonal allergic rhinitis; R87.610 Atypical squamous cells of undetermined significance on cytologic smear of cervix (ASC-US); R87.810 Cervical high risk human papillomavirus (HPV) DNA test positive; Z79.51 Long term (current) use of inhaled steroids; Z79.1 Long term (current) use of non-steroidal anti-inflammatories (NSAID)
CPT/HCPCS: 59812; 76857; 81025; 88305; J1100; J1885; J2003; J2250; J2405; J2704; J3010

== ENCOUNTER 2024-06-20 14:37 | Outpatient (AMB) | payer OTHER, SELFPAY ==
--- NOTE | 2024-06-20 15:07 | A.OFFVIS_ITS ---
Vital Signs 06/20/24 15:08 Height 5 ft 10 in Weight 143 lb BMI 20.5 Intake Visit Reasons: post op Allergies Seasonal Allergies Allergy (Mild, Verified 06/01/24 13:07) Itchy Eyes pet dander Allergy (Mild, Uncoded 12/29/23 15:01) itchy HPI Comments Details: The patient is presenting post suction D&C done on 06/01/2024 no complaints minimal vaginal bleeding no feverishness chills or abdominal pain. The pathology showed the following: Products of conception: - Necrotic decidua and chorionic villi;, fibroinflammatory material. - Secretory endometrium; no atypia identified The following workup was done.: H&H= 9.8/31.6 TSH, prolactin, hCG, GC and chlamydia were negative. Co testing was done ascus/HPV E6 E7 positive Pelvic ultrasound showed the following: IMPRESSION: 1. 1.6 cm endometrial mass, question retained products of conception. Endometrial mass not excluded. Correlate with hCG levels. 2. 2.2 cm complex left ovarian cyst. Consider short-term sonographic follow-up. [facility] Medical History Depression Family History Family/Other Breast cancer Social History Are you a primary resident care coordinator to a significant other at home: No Do you presently have visiting nurse or other home services: No Patient Tobacco Use Status: Never used Tobacco Female Reproductive History Menstrual Age of Menarche: 8 Review of Systems Const All systems reviewed & are unremarkable except as noted in HPI and below Reports as per HPI and Reports no additional complaints GI Reports no additional complaints Reports no additional complaints Physical Exam Vital Signs: BMI result Body Mass Index 20.5 Assessment & Plan Assessment & Plan (1) ASCUS with positive high risk HPV cervical: Code(s): R87.610 - Atypical squamous cells of undetermined significance on cytologic smear of cervix (ASC-US); R87.810 - Cervical high risk human papillomavirus (HPV) DNA test positive Category: Medical Plan: Discussed with the patient the results the Pap smear/HPV, recommended repeat cytology in 1 year per ASCCP guidelines since the patient has between the age of 21-24 (2) Retained products of conception following : Comment: Status post suction D&C Code(s): O03.4 - Incomplete spontaneous without complication Category: Medical Plan: Discussed with the patient the results the pathology, the patient was reassured. (3) Family planning: Code(s): Z30.09 - Encounter for other general counseling and advice on contraception Category: Social Hx Plan: Discussed with the patient the different options of control including control pills/Nuvaring, DMPA, IUD (Mirena, Paraguard), sterilization. All the pros, cons, risks and benefits of each were discussed with the patient. The patient decided to go ahead with Nuvaring so a more detailed discussion re: bcp including mechanism of action, benefits ( Regular menses, less dysmenorrhea, less risk of ovarian cancer, ...), risks ( DVT, PE, Strokes, OR, increased breast ca, others). Instructions were given to use a backup method for contraception x 1st 2 week. Nuvaring x 3 weeks then 1 week off. Instructions given to the pt to discard it if out for >4 hours and start a new ring with 2 weeks back up method for contraception and to schedule a 3 month follow-up appointment. Coding Level of Care Code Est Pt Level 3 (43851) Diagnoses ASCUS with positive high risk HPV cervical R87.610; R87.810 Retained products of conception following O03.4 Family planning Z30.09
[2024-06-20 15:08] VITALS: BMI 20.5
== END 2024-06-20 15:20 | disposition home or self-care (01) ==
LOC: HO.HWS 14:37
PROVIDERS: PCP Internal Medicine; Visit Provider Obstetrics & Gynecology
DX: R87.610 Atypical squamous cells of undetermined significance on cytologic smear of cervix (ASC-US) (principal); R87.810 Cervical high risk human papillomavirus (HPV) DNA test positive; O03.4 Incomplete spontaneous abortion without complication; Z30.09 Encounter for other general counseling and advice on contraception
CPT/HCPCS: 99024

== ENCOUNTER → 2024-06-20 14:37 | Outpatient (BNVA) | payer OTHER, SELFPAY | PROVIDERS: PCP Internal Medicine; Visit Provider Obstetrics & Gynecology | DX: Z48.816 Encounter for surgical aftercare following surgery on the genitourinary system (principal); O03.4 Incomplete spontaneous abortion without complication; R87.610 Atypical squamous cells of undetermined significance on cytologic smear of cervix (ASC-US); R87.810 Cervical high risk human papillomavirus (HPV) DNA test positive; Z30.09 Encounter for other general counseling and advice on contraception | CPT/HCPCS: 99212 ==

== ENCOUNTER 2024-09-08 14:12 | Outpatient (REF) | payer OTHER, SELFPAY ==
--- NOTE | ~2024-09-08 | US_ITS ---
EXAMINATION: US PELVIS TRANSABDOMINAL AND TRANSVAGINAL HISTORY: N83.299 - Other ovarian cyst, unspecified side COMPARISON: Comparison is made with the prior examination dated 05/29/2024. TECHNIQUE: Transabdominal and endovaginal real-time 2D centeno-scale ultrasound was performed. Color Doppler was also performed. FINDINGS: Uterus: The uterus is normal in size, measuring 8.1 x 3.5 x 5.2 cm. Myometrium has a normal echotexture. No fibroids are identified. Endometrium: The endometrial stripe measures 9 mm in thickness. Right ovary: The right ovary measures 4.7 x 2.5 x 1.5 cm. The right ovary is normal in size and echotexture. Left ovary: The left ovary measures 4.4 x 3.7 x 1.5 cm. The left ovary is normal in size and echotexture. The previously described complex structure in the left ovary is no longer identified. Color Doppler analysis of the bilateral ovarian arteries and veins are normal. Pelvic fluid: none. US/US pelvic and transvaginal IMPRESSION: Unremarkable pelvic ultrasound. The previously described complex structure in the left ovary is no longer identified. Electronically signed by: Thony Colbert MD 09/08/2024 03:36 PM [facility] [place]
--- OUTSIDE RECORDS SUMMARY | 2024-09-08 14:16 | XMS_ITS | Encounter Summary ---
Author Organization [facility] Address [address] [place], [place] [id number] Phone Care Team Providers Care Area Field Manager Name Role Phone Eliana Graham NP Primary Care Provider Genaro crawford Encounter Details Date Type Department Care Team (Late st Contact Info) Description 06/23/2011 Documentation [facility] [address] [place] [address] Family Medicine, Physician [facility] [address] [place], [place] [phone] Social History Tobacco Use Types Packs/Day Years Used Date Smoking Tobacco: Never Assessed Comments Unknown Sex and Gender Information Value Date Recorded Sex Assigned at Not on file Legal Sex Female 4:37 PM EDT Gender Identity Not on file Sexual Orientation Not on file documented as of this encounter Plan of Treatment Not on file documented as of this encounter Visit Diagnoses Not on filedocumented in this encounter Care Teams Area Field Manager Relationship Specialty Start Date End Date Eliana Graham NP PCP - General 03/19/17 09/16/22 documented as of this encounter
--- OUTSIDE RECORDS SUMMARY | 2024-09-08 14:16 | XMS_ITS | Clinical Summary ---
Author Organization [employer] [facility] Address [address] [place] [address] Care Team Providers Care Set Builder Name Role Phone Unavailable Primary Care Provider Unavailabl e Social History Tobacco Use Types Packs/Day Years Used Date Smoking Tobacco: Never Assessed Sex and Gender Information Value Date Recorded Sex Assigned at Not on file Gender Identity Not on file Sexual Orientation Not on file Plan of Treatment Health Maintenance Due Date Last Done Comments Gonorrhea/Chlamydia Screening 2003 HPV Vaccines (1 - 3-dose series) 2018 DTaP,Tdap,and Td Vaccines (1 - Tdap) 2022 Hepatitis B Vaccines (1 of 3 - 19+ 3-dose series) 2022 Cervical Cancer Screening: P ap Smear 02/24/2024 COVID-19 Vaccine ( - 2023-2 5 season) 2024 Influenza Vaccine (#1) 2024 HIB Vaccines Aged Out No longer eligi ble based on patient's age to complete this topic Hepatitis A Vaccines Aged Out No long er eligible based on patient's age to complete this topic IPV Vaccines Aged Out No longer eligi ble based on patient's age to complete this topic MMR Vaccines Aged Out No longer eligi ble based on patient's age to complete this topic Meningococcal ACWY Vaccine Aged Out N o longer eligible based on patient's age to complete this topic Pneumococcal Vaccine: Pediat rics (0 to 5 Years) and At-Risk Patients (6 to 64 Years) Aged Out No longer eligible b ased on patient's age to complete this topic RSV Immunization Patients Un rodo 20 months Aged Out No longer eligible b ased on patient's age to complete this topic Varicella Vaccines Aged Out No longer eligible based on patient's age to complete this topic
--- OUTSIDE RECORDS SUMMARY | 2024-09-08 14:16 | XMS_ITS | Clinical Summary ---
Author Organization [facility] Address [address] [place] [address] Phone Care Team Providers Care Paradi Tender Name Role Phone Unavailable Primary Care Provider Unavailabl e Immunizations Name Administration Dates Next Due DTaP 5 12/20/2007, 5,2003,2003, 3 H1N1 11/06/2009,08/28/2009 Hep B, ped/adol 01/14/2004,2003,2003 Hib (HbOC) 09/22/2004,2003,2003 ,2003 IPV 12/20/2007,01/14/2004,2003 ,2003 Influenza Split 08/14/2010 MMR 12/20/2007,04/08/2004 Pneumococcal Conjugate 09/22/2004,04/08/2004,,2003 Varicella 12/20/2007,04/08/2004 Family History Relation Name Status Comments Father Alive Father: Asthma, cholesterol Mother Alive Mother: Alive a nd well Other Family history of ADD/ADHD, Family history of Obesity, Family history of Diabetes mellitus, Family history of Asthma Paternal Grandmother Paterna l grandmother: Diabetic, asthma Social History Tobacco Use Types Packs/Day Years Used Date Smoking Tobacco: Never Assessed Comments Unknown Sex and Gender Information Value Date Recorded Sex Assigned at Not on file Legal Sex Female 4:37 PM EDT Gender Identity Not on file Sexual Orientation Not on file Last Filed Vital Signs Vital Sign Reading Time Taken Comments Blood Pressure 80/52 11/26/2010 12:00 AM EDT Pulse 88 11/26/2010 12:00 AM EDT Temperature 36.4 ??C (97.6 ??F) 11/26/2010 12:00 AM E DT Respiratory Rate - - Oxygen Saturation - - Inhaled Oxygen Concentration - - Weight 26.3 kg (58 lb) 11/26/2010 12:00 AM EDT Height 135.9 cm (4' 5.5 ) 11/26/2010 12:00 AM ED T Body Mass Index 14.25 11/26/2010 12:00 AM EDT Plan of Treatment Health Maintenance Due Date Last Done Comments DTaP,Tdap,and Td Vaccines (6 - Tdap) 2014 12/20/2007, 11/05/2004, 2003, Additional history exists HPV Vaccines (1 - 3-dose series) 2018 Consider Men B Vaccine (1 of 2 - Bexsero 2-dose series) 2019 Men B Vaccine (1 of 2 - Standard) 2019 Influenza Vaccines (#1) 2024 08/14/2010 COVID-19 Vaccine ( season) 2024 Hepatitis B Vaccines Completed 01/14/2004, 2003, 2003 HIB Vaccines Completed 09/22/2004, 10/09, 2003, Additional history exists Pneumococcal Vaccine Completed 09/22/2004, 04/08/2004, 2003, Additional history exists IPV Vaccines Completed 12/20/2007, 02/2004, 2003, Additional history exists MMR Vaccines Completed 12/20/2007, 04/08/2004 Varicella Vaccines Completed 12/20/2007, 04/08/2004 Hepatitis A Vaccines Aged Out No long er eligible based on patient's age to complete this topic Meningococcal Vaccine Aged Out No irish eli eligible based on patient's age to complete this topic
--- OUTSIDE RECORDS SUMMARY | 2024-09-08 14:16 | XMS_ITS | Encounter Summary ---
Author Organization [facility] Address [address] [place] [address] Phone Care Team Providers Care Communications Marketing Intern Name Role Phone Eliana Graham NP Primary Care Provider Genaro crawford Encounter Details Date Type Department Care Team (Late st Contact Info) Description 03/25/2017 Conversion Encounter [facility] - [address] [phone] Social History Tobacco Use Types Packs/Day Years [...] on filedocumented in this encounter Care Teams Communications Marketing Intern Relationship Specialty Start Date End Date Eliana Graham NP PCP - General 03/19/17 09/16/22 documented as of this encounter
--- OUTSIDE RECORDS SUMMARY | 2024-09-08 14:16 | XMS_ITS | Encounter Summary ---
Author Organization [facility] Address [address] [place], [place] [phone] Phone Care Team Providers Care Drum Stock Clerk Name Role Phone Eliana Graham NP Primary Care Provider Genaro crawford Encounter Details Date Type Department Care Team (Late st Contact Info) Description 01/05/2011 Documentation [facility] [place] [facility] [address] [place] [address] Family Medicine, Physician [facility] [address] [place], [place] [address] Social History Tobacco Use Types Packs/Day Years [...] on filedocumented in this encounter Care Teams Drum Stock Clerk Relationship Specialty Start Date End Date Eliana Graham NP PCP - General 03/19/17 09/16/22 documented as of this encounter
== END 2024-09-08 14:13 | disposition home or self-care (01) ==
LOC: HO.US 14:12
PROVIDERS: PCP Internal Medicine; Visit Provider Obstetrics & Gynecology
DX: N83.299 Other ovarian cyst, unspecified side (principal)
CPT/HCPCS: 76830; 76856

== ENCOUNTER → 2024-09-08 14:16 | Outpatient (BNV) | payer OTHER, SELFPAY | PROVIDERS: PCP Internal Medicine; Visit Provider Radiology Diagnostic Radiology | DX: N83.299 Other ovarian cyst, unspecified side (principal) | CPT/HCPCS: 76830; 76856 ==

== ENCOUNTER 2024-09-26 15:26 | Outpatient (AMB) | payer OTHER, SELFPAY ==
--- NOTE | 2024-09-26 15:27 | A.OFFVIS_ITS ---
Intake Visit Reasons: Ultra sound follow up Casing Running Machine Tender: Casing Running Machine Tender Present (Giulia) Accompanied by: Self / Same As Patient Allergies Seasonal Allergies Allergy (Mild, Verified 09/26/24 15:32) Itchy Eyes pet dander Allergy (Mild, Uncoded 12/29/23 15:01) itchy HPI Comments Details: Presenting for ultrasound follow-up regarding left complex ovarian cyst identified on pelvic ultrasound done in 06/01. The patient is complaining of vulvovaginal itching with no discharge or foul odor Pelvic ultrasound done on 09/08/2024 showed the following: IMPRESSION: Unremarkable pelvic ultrasound. The previously described complex structure in the left ovary is no longer identified. FORMERLY [facility] Medical History Depression Family History Family/Other Breast cancer Social History Are you a primary childcare attendant to a significant other at home: No Do you presently have visiting nurse or other home services: No Patient Tobacco Use Status: Never used Tobacco Female Reproductive History Menstrual Age of Menarche: 8 Review of Systems Const All systems reviewed & are unremarkable except as noted in HPI and below Reports as per HPI and Reports no additional complaints GI Reports no additional complaints Reports no additional complaints Physical Exam General: Yes no CVA tenderness External Female Exam: normal external appearance and normal appearance of the urethra Speculum Exam - Vagina: normal appearance of the vagina, normal palpation, no lesions and no masses Speculum Exam - Cervix: normal appearance of the cervix, normal palpation, no lesions, no masses and nontender Bimanual exam- vagina & uterus: normal bimanual exam, normal palpation, uterine size normal, normal palpation, uterine shape normal, No Cervical tenderness present and non-tender Bimanual Exam- Adnexa, other: normal adnexae Back/Spine/Pelvis Back: no CVA tenderness Assessment & Plan Assessment & Plan (1) Complex ovarian cyst: Code(s): N83.299 - Other ovarian cyst, unspecified side Category: Medical Plan: Discussed with the patient ultrasound findings showing the previously identified complex cyst has resolved. The patient was instructed to call if symptoms recur. All questions were answered the patient verbalized understanding. (2) Vulvovaginitis: Code(s): N76.0 - Acute vaginitis Category: Medical Plan: GC/CT, Bacterial Vaginosis panel taken, Terazol 0.8% q.h.s. for 3 days was sent to the patient's pharmacy. The patient was instructed to call if symptoms don't improve in 48 hours. Medications: New terconazole 0.8% 1 appful vaginal BEDTIME 3 days 20 grams 0RF Coding Level of Care Code Est Pt Level 3 (80698) Diagnoses Complex ovarian cyst N83.299 Vulvovaginitis N76.0
--- OUTSIDE RECORDS SUMMARY | 2024-09-26 16:19 | XMS_ITS | Clinical Summary ---
Author Organization [facility] Address [address] [place] [address] Phone Care Team Providers Care Buffing Wheel Raker Name Role Phone Unavailable Primary Care Provider Unavailabl e Immunizations Immunization Administration Dates Next Due DTaP 5 12/20/2007, [...] HPV Vaccines (1 - 3-dose series) 2018 Men B Vaccine (1 of 2 - [...]
--- OUTSIDE RECORDS SUMMARY | 2024-09-26 16:19 | XMS_ITS | Encounter Summary ---
Author Organization [facility] Address [address] [place] [address] Phone Care Team Providers Care Parking Supervisor Name Role Phone Eliana Graham NP Primary Care Provider Genaro crawford Encounter Details Date Type Department Care Team (Late st Contact Info) Description 03/25/2017 Conversion Encounter [facility] - [address] [phone] Social History Tobacco Use Types Packs/Day Years [...] on filedocumented in this encounter Care Teams Parking Supervisor Relationship Specialty Start Date End Date Eliana Graham NP PCP - General 03/19/17 09/16/22 documented as of this encounter
--- OUTSIDE RECORDS SUMMARY | 2024-09-26 16:19 | XMS_ITS | Clinical Summary ---
Author Organization [facility] ity Address [address] [place] [address] Care Team Providers Care Bookkeeping Clerks Supervisor Name Role Phone Unavailable Primary Care Provider Unavailabl e Social History Tobacco Use Types Packs/Day Years Used Date Smoking Tobacco: Never Assessed Comments Unknown Sex and Gender Information Value Date Recorded Sex Assigned at Not on file Legal Sex Female 9:54 AM EST Gender Identity Not on file Sexual Orientation Not on file Plan of Treatment Health Maintenance Due Date Last Done Comments Gonorrhea/Chlamydia Screening 2003 HPV Vaccines (1 - 3-dose series) 2018 Meningococcal B Vacine (1 of 2 - Standard) 2019 DTaP,Tdap,and Td Vaccines (1 - Tdap) 2022 [...]
--- OUTSIDE RECORDS SUMMARY | 2024-09-26 16:19 | XMS_ITS | Encounter Summary ---
Author Organization [facility] Address [address] [place], [place] [address] Phone Care Team Providers Care Commuter Pilot Name Role Phone Eliana Graham NP Primary Care Provider Genaro crawford Encounter Details Date Type Department Care Team (Late st Contact Info) Description 06/23/2011 Documentation [facility] [place] [address] [place] [address] Family Medicine, Physician [facility] [address] [place], [place] [address] Social History Tobacco Use Types Packs/Day Years [...] on filedocumented in this encounter Care Teams Commuter Pilot Relationship Specialty Start Date End Date Eliana Graham NP PCP - General 03/19/17 09/16/22 documented as of this encounter
--- OUTSIDE RECORDS SUMMARY | 2024-09-26 16:19 | XMS_ITS | Encounter Summary ---
Author Organization [facility] Address [address] [place] [address] Phone Care Team Providers Care Qualified Craft Worker Electrician Name Role Phone Eliana Graham NP Primary Care Provider Genaro crawford Encounter Details Date Type Department Care Team (Late st Contact Info) Description 01/05/2011 Documentation [facility] [place] [address] [place] [address] Family Medicine, Physician [facility] [address] [place], [place] [address] Social History Tobacco Use Types Packs/Day Years [...] on filedocumented in this encounter Care Teams Qualified Craft Worker Electrician Relationship Specialty Start Date End Date Eliana Graham NP PCP - General 03/19/17 09/16/22 documented as of this encounter
== END 2024-09-26 16:00 | disposition home or self-care (01) ==
PROVIDERS: PCP Internal Medicine; Visit Provider Obstetrics & Gynecology
DX: N83.299 Other ovarian cyst, unspecified side (principal); N76.0 Acute vaginitis
CPT/HCPCS: 99213

== ENCOUNTER 2024-09-26 15:26 | Outpatient (REF) | payer OTHER, SELFPAY ==
[2024-09-27 17:15] LABS: Bacterial Vaginosis PCR POSITIVE (Negative); Candida Group PCR DETECTED (Not Detect); Candida glab krusei PCR NOT DETECTED (Not Detect); Trichomonas vaginalis PCR NOT DETECTED (Not Detect)
[2024-09-27 17:47] LABS: CT PCR NOT DETECTED (Not Detect.); NG PCR NOT DETECTED (Not Detect.)
== END 2024-09-26 15:27 | disposition home or self-care (01) ==
LOC: HO.LNP 15:26
PROVIDERS: PCP Internal Medicine; Visit Provider Obstetrics & Gynecology
DX: N83.299 Other ovarian cyst, unspecified side (principal); N76.0 Acute vaginitis
CPT/HCPCS: 81515; 87491; 87591; 99212

== ENCOUNTER 2024-10-04 10:08 | Outpatient (AMB) | payer OTHER, SELFPAY ==
--- NOTE | 2024-10-04 10:13 | A.OFFVIS_ITS ---
Intake Visit Reasons: vulva rash and pain per Inside Horticultural Specialty Grower: Inside Horticultural Specialty Grower Present (Giulia) Accompanied by: Self / Same As Patient Allergies Seasonal Allergies Allergy (Mild, Verified 10/04/24 10:16) Itchy Eyes pet dander Allergy (Mild, Uncoded 12/29/23 15:01) itchy HPI Comments Details: Presenting complaining of multiple vulvar painful lesions that started 6 days ago after recent unprotected intercourse with a new part, no associated vaginal discharge or in other symptoms PFSH Medical History Depression Family History Family/Other Breast cancer Social History Are you a primary skin care therapist to a significant other at home: No Do you presently have visiting nurse or other home services: No Patient Tobacco Use Status: Never used Tobacco Female Reproductive History Menstrual Age of Menarche: 8 Review of Systems Const All systems reviewed & are unremarkable except as noted in HPI and below Physical Exam General: Yes no CVA tenderness External Female Exam: No normal external appearance (Multiple tender ulcers bilaterally and in the posterior fourchette-HSV like) and normal appearance of the urethra Speculum Exam - Vagina: normal appearance of the vagina, normal palpation, no lesions and no masses Speculum Exam - Cervix: normal appearance of the cervix, normal palpation, no lesions, no masses and nontender Bimanual exam- vagina & uterus: normal bimanual exam, normal palpation, uterine size normal, normal palpation, uterine shape normal, No Cervical tenderness present and non-tender Bimanual Exam- Adnexa, other: normal adnexae Back/Spine/Pelvis Back: no CVA tenderness Assessment & Plan Assessment & Plan (1) Herpes genitalis: Code(s): A60.00 - Herpesviral infection of urogenital system, unspecified Category: Medical Plan: Discussed with the patient the findings on physical exam, diagnosis being suspicious for herpes and the mode of transmission. Will rule out other STDs including RPR, hep B and C, HIV, GC and chlamydia and Trichomonas. Valtrex Prescription 1 g p.o. b.i.d. for 10 days for initial outbreak was sent to the patient pharmacy, follow-up in 2 weeks for re-evaluation. all questions answered patient verbalized understanding. Orders: Orders Syphilis Screen Today A60.00 - Herpesviral infection of urogenital system, unspecified Hepatitis B Surface Antigen Today A60.00 - Herpesviral infection of urogenital system, unspecified HIV Ab/Ag Today A60.00 - Herpesviral infection of urogenital system, unspecified Hepatitis C Antibody Today A60.00 - Herpesviral infection of urogenital system, unspecified Medications: New valacyclovir 1,000 mg PO BID 10 days 20 tabs 0RF Coding Level of Care Code Est Pt Level 3 (16365) Diagnoses Herpes genitalis A60.00
--- OUTSIDE RECORDS SUMMARY | 2024-10-04 12:13 | XMS_ITS | Clinical Summary ---
Author Organization [facility] Address [address] [place] [address] Phone Care Team Providers Care Construction Equipment Operator Name Role Phone Unavailable Primary Care Provider [...]
--- OUTSIDE RECORDS SUMMARY | 2024-10-04 12:13 | XMS_ITS | Clinical Summary ---
Author Organization [facility] [employer] [facility] ity Address [address] [place] [address] Care Team Providers Care Suppression Crew Leader Name Role Phone Unavailable Primary Care Provider [...]
--- OUTSIDE RECORDS SUMMARY | 2024-10-04 12:13 | XMS_ITS | Encounter Summary ---
Author Organization [facility] Address [address] [place], [place] [phone] Phone Care Team Providers Care Fire Marshal Name Role Phone Eliana Graham NP Primary Care Provider Genaro crawford Encounter Details Date Type Department Care Team (Late st Contact Info) Description 06/23/2011 Documentation [facility] [place] [address] [place] [address] Family Medicine, Physician [facility] [address] [place], [place] [address] Social History Tobacco Use Types Packs/Day Years [...] on filedocumented in this encounter Care Teams Fire Marshal Relationship Specialty Start Date End Date Eliana Graham NP PCP - General 03/19/17 09/16/22 documented as of this encounter
--- OUTSIDE RECORDS SUMMARY | 2024-10-04 12:13 | XMS_ITS | Encounter Summary ---
Author Organization [facility] Address [address] [place] [address] Phone Care Team Providers Care Voltage Regulator Assembler Name Role Phone Eliana Graham NP Primary Care Provider Genaro crawford Encounter Details Date Type Department Care Team (Late st Contact Info) Description 03/25/2017 Conversion Encounter [facility] - [address] [phone] Social History Tobacco Use Types Packs/Day Years [...] on filedocumented in this encounter Care Teams Voltage Regulator Assembler Relationship Specialty Start Date End Date Eliana Graham NP PCP - General 03/19/17 09/16/22 documented as of this encounter
--- OUTSIDE RECORDS SUMMARY | 2024-10-04 12:13 | XMS_ITS | Encounter Summary ---
Author Organization [facility] Address [address] [place] [address] Phone Care Team Providers Care Wireworker Supervisor Name Role Phone Eliana Graham NP Primary Care Provider Genaro crawford Encounter Details Date Type Department Care Team (Late st Contact Info) Description 01/05/2011 [place] [facility] [place] [address] [place] [address] Family Medicine, Physician [facility] [address] [place], [place] [address] Social History Tobacco Use Types Packs/Day Years [...] on filedocumented in this encounter Care Teams Wireworker Supervisor Relationship Specialty Start Date End Date Eliana Graham NP PCP - General 03/19/17 09/16/22 documented as of this encounter
== END 2024-10-04 10:35 | disposition home or self-care (01) ==
PROVIDERS: PCP Internal Medicine; Visit Provider Obstetrics & Gynecology
DX: A60.00 Herpesviral infection of urogenital system, unspecified (principal)
CPT/HCPCS: 99213

== ENCOUNTER 2024-10-04 10:08 | Outpatient (REF) | payer OTHER, SELFPAY ==
--- OUTSIDE RECORDS SUMMARY | 2024-10-04 13:00 | XMS_ITS | Clinical Summary ---
Author Organization [facility] Address [address] [place] [address] Phone Care Team Providers Care Supervisor Mirror Fabrication Name Role Phone Unavailable Primary Care Provider [...]
--- OUTSIDE RECORDS SUMMARY | 2024-10-04 13:00 | XMS_ITS | Clinical Summary ---
Author Organization [facility] [employer] [facility] ity Address [address] [place] [address] Care Team Providers Care Rn Surgery Icu Name Role Phone Unavailable Primary Care Provider [...]
--- OUTSIDE RECORDS SUMMARY | 2024-10-04 13:00 | XMS_ITS | Encounter Summary ---
Author Organization [facility] Address [address] [place] [address] Phone Care Team Providers Care Contract Officer Name Role Phone Eliana Graham NP Primary Care Provider Genaro crawford Encounter Details Date Type Department Care Team (Late st Contact Info) Description 03/25/2017 Conversion Encounter [facility] - [address] [phone] Social History Tobacco Use Types Packs/Day Years [...] on filedocumented in this encounter Care Teams Contract Officer Relationship Specialty Start Date End Date Eliana Graham NP PCP - General 03/19/17 09/16/22 documented as of this encounter
--- OUTSIDE RECORDS SUMMARY | 2024-10-04 13:01 | XMS_ITS | Encounter Summary ---
Author Organization [facility] Address [address] [place] [address] Phone Care Team Providers Care Music Grapher Name Role Phone Eliana Graham NP Primary Care Provider Genaro crawford Encounter Details Date Type Department Care Team (Late st Contact Info) Description 01/05/2011 Documentation [facility] [place] [address] [place] [address] Family Medicine, Physician [facility] [address] [place], [place] [address] Social History Tobacco Use Types Packs/Day Years [...] on filedocumented in this encounter Care Teams Music Grapher Relationship Specialty Start Date End Date Eliana Graham NP PCP - General 03/19/17 09/16/22 documented as of this encounter
--- OUTSIDE RECORDS SUMMARY | 2024-10-04 13:01 | XMS_ITS | Encounter Summary ---
Author Organization [facility] Address [address] [place], [place] [phone] Phone Care Team Providers Care Staff Writer Name Role Phone Eliana Graham NP Primary Care Provider Genaro crawford Encounter Details Date Type Department Care Team (Late st Contact Info) Description 06/23/2011 Documentation [facility] [place] [address] [place] [address] Family Medicine, Physician [facility] [address] [place], [place] [address] Social History Tobacco Use Types Packs/Day Years [...] on filedocumented in this encounter Care Teams Staff Writer Relationship Specialty Start Date End Date Eliana Graham NP PCP - General 03/19/17 09/16/22 documented as of this encounter
[2024-10-05 08:23] LABS: Syphilis Screen Nonreactive (Nonreactive)
[2024-10-05 08:53] LABS: HBsAGNum1 0.34 S/CO (0.00-0.99); HIV AB/AG Nonreactive (Nonreactive); HIV Num 1 0.05 S/CO (0.00-0.99); Hepatitis B Surface Antigen Negative (Negative); ~HepC Num1 0.09 S/CO (0.00-0.79); ~Hepatitis C Antibody Nonreactive (Nonreactive)
== END 2024-10-04 10:09 | disposition home or self-care (01) ==
LOC: HO.LNP 10:08
PROVIDERS: PCP Internal Medicine; Visit Provider Obstetrics & Gynecology
DX: A60.00 Herpesviral infection of urogenital system, unspecified (principal)
CPT/HCPCS: 86780; 86803; 87340; 87389; 99212

== ENCOUNTER 2024-10-04 10:36 | Outpatient (REF) | payer OTHER, SELFPAY ==
[2024-10-04 22:02] LABS: Bacterial Vaginosis PCR NEGATIVE (Negative); Candida Group PCR NOT DETECTED (Not Detect); Candida glab krusei PCR NOT DETECTED (Not Detect); Trichomonas vaginalis PCR NOT DETECTED (Not Detect)
[2024-10-04 23:52] LABS: CT PCR NOT DETECTED (Not Detect.); NG PCR NOT DETECTED (Not Detect.)
== END 2024-10-04 10:37 | disposition home or self-care (01) ==
LOC: HO.LAB 10:36
PROVIDERS: Visit Provider Obstetrics & Gynecology
DX: A60.00 Herpesviral infection of urogenital system, unspecified (principal); N76.0 Acute vaginitis
CPT/HCPCS: 81515; 87255; 87491; 87591

== ENCOUNTER 2024-10-25 08:30 | Outpatient (AMB) | payer OTHER, SELFPAY ==
--- NOTE | 2024-10-25 08:34 | A.OFFVIS_ITS ---
Intake Visit Reasons: CRISTAL/ blood work results Laundry Attendant: Laundry Attendant Present (Leena) Allergies Seasonal Allergies Allergy (Mild, Verified 10/04/24 10:16) Itchy Eyes pet dander Allergy (Mild, Uncoded 12/29/23 15:01) itchy HPI Comments Details: Presenting for follow-up herpes outbreak. HSV was isolated. All STD screening including GC/CT, HIV, hep B surface antigen, hep C antibody and syphilis all negative FORMERLY [facility] Medical History Depression Family History Family/Other Breast cancer Social History Are you a primary emergency care attendant to a significant other at home: No Do you presently have visiting nurse or other home services: No Patient Tobacco Use Status: Never used Tobacco Female Reproductive History Menstrual Age of Menarche: 8 Review of Systems Const All systems reviewed & are unremarkable except as noted in HPI and below Physical Exam General: Yes no CVA tenderness External Female Exam: normal external appearance and normal appearance of the urethra Speculum Exam - Vagina: normal appearance of the vagina, normal palpation, no lesions and no masses Speculum Exam - Cervix: normal appearance of the cervix, normal palpation, no lesions, no masses and nontender Bimanual exam- vagina & uterus: normal bimanual exam, normal palpation, uterine size normal, normal palpation, uterine shape normal, No Cervical tenderness present and non-tender Bimanual Exam- Adnexa, other: normal adnexae Back/Spine/Pelvis Back: no CVA tenderness Assessment & Plan Assessment & Plan (1) Herpes genitalis: Code(s): A60.00 - Herpesviral infection of urogenital system, unspecified Category: Medical Plan: Discussed with the patient the results of herpes, isolated and the mode of transmission. Recommended repeat STDs including RPR, hep B and C, HIV in six- months. Valtrex Prescription 500 mg p.o. b.i.d. for 3 days p.r.n. outbreak with 6 refills was sent to the patient pharmacy. Instructions given the patient to call if recurrent episodes are occurring all consider suppressive therapy. All questions answered patient verbalized understanding. Medications: New valacyclovir (Valtrex) 500 mg PO BID 3 days 6 tabs 6RF Coding Level of Care Code Est Pt Level 3 (11912) Diagnoses Herpes genitalis A60.00
--- OUTSIDE RECORDS SUMMARY | 2024-10-25 09:15 | XMS_ITS | Encounter Summary ---
Author Organization [facility] Address [address] [place] [address] Phone Care Team Providers Care License Examiner Name Role Phone Eliana Graham NP Primary Care Provider Genaro crawford Encounter Details Date Type Department Care Team (Late st Contact Info) Description 03/25/2017 Conversion Encounter [facility] - [address] [phone] Social History Tobacco Use Types Packs/Day Years [...] on filedocumented in this encounter Care Teams License Examiner Relationship Specialty Start Date End Date Eliana Graham NP PCP - General 03/19/17 09/16/22 documented as of this encounter
--- OUTSIDE RECORDS SUMMARY | 2024-10-25 09:15 | XMS_ITS | Clinical Summary ---
Author Organization [facility] [facility] ity Address [address] [place] [address] Care Team Providers Care Bad Credit Collector Name Role Phone Unavailable Primary Care Provider [...]
--- OUTSIDE RECORDS SUMMARY | 2024-10-25 09:15 | XMS_ITS | Encounter Summary ---
Author Organization [facility] Address [address] [place], [place] [phone] Phone Care Team Providers Care Web Development Manager Name Role Phone Eliana Graham NP Primary Care Provider Genaro crawford Encounter Details Date Type Department Care Team (Late st Contact Info) Description 06/23/2011 Documentation [facility] [place] [address] [place] [address] Family Medicine, Physician [facility] [address] [place], [place] [address] Social History Tobacco Use Types Packs/Day Years [...] on filedocumented in this encounter Care Teams Web Development Manager Relationship Specialty Start Date End Date Eliana Graham NP PCP - General 03/19/17 09/16/22 documented as of this encounter
--- OUTSIDE RECORDS SUMMARY | 2024-10-25 09:15 | XMS_ITS | Clinical Summary ---
Author Organization [facility] Address [address] [place] [address] Phone Care Team Providers Care Behavioral Health Professional Name Role Phone Unavailable Primary Care Provider [...]
--- OUTSIDE RECORDS SUMMARY | 2024-10-25 09:15 | XMS_ITS | Encounter Summary ---
Author Organization [facility] Address [address] [place], [place] [phone] Phone Care Team Providers Care Manager Music Name Role Phone Eliana Graham NP Primary Care Provider Genaro crawford Encounter Details Date Type Department Care Team (Late st Contact Info) Description 01/05/2011 Documentation [facility] [place] [address] [place] [address] Family Medicine, Physician [facility] [address] [place], [place] [address] Social History Tobacco Use Types Packs/Day Years [...] on filedocumented in this encounter Care Teams Manager Music Relationship Specialty Start Date End Date Eliana Graham NP PCP - General 03/19/17 09/16/22 documented as of this encounter
== END 2024-10-25 09:04 | disposition home or self-care (01) ==
LOC: HO.HWS 08:30
PROVIDERS: PCP Internal Medicine; Visit Provider Obstetrics & Gynecology
DX: A60.00 Herpesviral infection of urogenital system, unspecified (principal)
CPT/HCPCS: 99213

== ENCOUNTER → 2024-10-25 08:30 | Outpatient (BNVA) | payer OTHER, SELFPAY | PROVIDERS: PCP Internal Medicine; Visit Provider Obstetrics & Gynecology | DX: A60.00 Herpesviral infection of urogenital system, unspecified (principal) | CPT/HCPCS: 99212 ==

== ENCOUNTER 2025-07-02 20:02 | Emergency (ER) | payer OTHER, SELFPAY ==
--- NOTE | ~2025-07-02 | US_ITS ---
CLINICAL HISTORY: pelvic pain, bleeding --- Additional Notes or Special Instructions: LMP 10 11 US OB 1st Trimester transabdominal and transvaginal Comparison: US/SR - US PELVIS TRANSABDOMINAL AND TRANSVAGINAL - 09/08/24 14:49 EST Findings: Single intrauterine . CRL: 1.8 mm. EGA: 5 weeks, 1 day. HOLLI: 02/23/2026. Previously established gestational age: N/A . Normal yolk sac . Cardiac activity: Not seen Trace subchorionic bleed. Right ovary measures 5.0 x 2.5 x 2.6 cm. Corpus luteal cyst measuring 2.1 x 1.6 x 1.9 cm. Left ovary measures 3.0 x 1.6 x 2.1 cm. IMPRESSION: 1. Single intrauterine estimated 5 weeks, 1 day gestational age by today's ultrasound criteria. Cardiac activity is not appreciated likely related to early . Short-term follow-up is recommended. 2. No evidence of ovarian torsion. This document has been electronically signed by: Bakari Enriquez MD on 07/02/2025 23:06:03
[2025-07-02 20:04] VITALS: BP 128/70; PULSE 90; RESP 20; TEMP 36.8; O2SAT 99; BMI 20.8
[2025-07-02 20:18] LABS: Hematocrit 35.9 % (37.0-47.0); Hemoglobin 11.5 g/dl (12.0-16.0); Imm Gran Abs Auto 0.03 X10*3/uL (0.00-0.03); Imm Gran Pct Auto 0.2 % (0.0-0.4); Lymphocytes Absolute Auto 2.7 X10*3/uL (1.2-4.9); MANUAL DIFF FLAG NO; Mean Corpuscular HGB Conc 32.0 g/dl (31.0-35.0); Mean Corpuscular Hemoglobin 25.0 pg (27.0-33.0); Mean Corpuscular Volume 78.0 fL (80.0-98.0); NRBC Abs Auto 0.000 X10*3/uL (0.0-0.012); NRBC Pct Auto 0.0 /100WBC (0.0-0.2); Platelet Count 321 X10*3/uL (160-400); Red Blood Count 4.60 X10*6/uL (4.20-5.50); White Blood Count 12.3 X10*3/uL (4.8-10.8)
[2025-07-02 20:25] VITALS: BP 121/57; PULSE 83; RESP 17; TEMP 36.9; O2SAT 98
[2025-07-02 20:44] LABS: Alanine Aminotransferase 11 U/L (0-31); Albumin Level 4.6 g/dL (3.5-5.0); Alkaline Phosphatase 73 U/L (39-117); Anion Gap 10 (12-20); Aspartate Amino Transferase 15 U/L (5-31); Blood Urea Nitrogen 10 mg/dL (9-16); Calcium 9.5 mg/dL (8.4-10.2); Carbon Dioxide 21 mmol/L (22-29); Chloride 111 mmol/L (96-108); Creatinine Clr Calc Pharmacy 140.9; Estimated Glomerular Filt Rate > 60; Potassium 4.0 mmol/L (3.3-5.1); Sodium 138 mmol/L (135-145); Total Protein 7.7 g/dL (6.5-8.0)
[2025-07-02 20:46] LABS: Magnesium 1.8 mg/dL (1.6-2.6)
[2025-07-02 20:49] LABS: Appearance Urine Cloudy; Glucose Urine UA Negative (Negative); PH 5.5 (5.0-9.0); Specific Gravity - Urine >= 1.030 (1.005-1.025); UMIC TRIGGER UACC YES
[2025-07-02 21:05] LABS: UACC Culture Trigger YES
[2025-07-02 21:23] LABS: Resp Syncy Virus RNA Qual PCR NEGATIVE (Negative); SARS COV2 PCR INHOUSE NEGATIVE (Negative)
--- NOTE | 2025-07-02 22:11 | ED.GENADULT ---
HPI - General Adult General Chief complaint: Abdominal Pain Stated complaint: 6 weeks , abd pain Time Seen by Provider: 07/02/25 20:32 Source: patient Limitations: no limitations History of Present Illness ED Provider: Karine Garza PA-C HPI narrative: 20-year-old female who is approximately 6 weeks , presents with the abdominal cramping x1 day. Patient states she is prone to vaginal yeast infections, she does have some white discharge. She also noted some brownish discharge that was minimal, that has not progress. No active vaginal bleeding. The patient has yet to initiate care, she just discovered she was 2 days ago. Denies current risk for STD. Denies nausea vomiting dysuria or fever. Related Data Home Medications ?Medication ?Instructions ?Recorded ?Confirmed albuterol 90 mcg/actuation aerosol 90 mcg inhalation 06/01/24 inhaler diphenhydramine HCl 50 mg capsule 50 mg PO BEDTIME PRN allergies 06/01/24 06/01/24 fluticasone propionate 110 110 inh inhalation asthma 06/01/24 mcg/actuation HFA aerosol inhaler ibuprofen 800 mg tablet 800 mg PO Q8H PRN moderate pain 06/01/24 06/01/24 loratadine 10 mg tablet (Claritin) 10 mg PO DAILY allergies 06/01/24 06/01/24 Previous Rx's ?Medication ?Instructions ?Recorded etonogestrel 0.12 mg-ethinyl 1 vag ring vaginal Q4W 3 weeks #3 12/29/23 estradiol 0.015 mg/24 hr vaginal ea ring etonogestrel 0.12 mg-ethinyl 1 vag ring vaginal Q4W #3 ea 05/10/24 estradiol 0.015 mg/24 hr vaginal ring (NuvaRing) ferrous sulfate 325 mg (65 mg 325 mg PO DAILY 90 days #90 tabs 07/10/24 iron) tablet terconazole 0.8 % vaginal cream 1 appful vaginal BEDTIME 3 days 09/26/24 #20 grams valacyclovir 1 gram tablet 1,000 mg PO BID 10 days #20 tabs 10/04/24 valacyclovir 500 mg tablet 500 mg PO BID 3 days #6 tabs 10/25/24 (Valtrex) Allergies Allergy/AdvReac Type Severity Reaction Status Date / Time Seasonal Allergies Allergy Mild Itchy Eyes Verified 07/02/25 20:08 pet dander Allergy Mild itchy Uncoded 07/02/25 20:08 Review of Systems Review of Systems: Yes all other systems are reviewed and are negative Constitutional: Constitutional: Denies fatigue and Denies fever(s) Cardiovascular: Cardiovascular: Denies chest pain and Denies dyspnea Respiratory: Respiratory: Denies dyspnea Gastrointestinal: Gastrointestinal: Denies abdominal pain, Denies nausea and Denies vomiting Genitourinary: Genitourinary: Denies abnormal vaginal bleeding, Denies dysuria, Reports pelvic pain and Reports vaginal discharge Endocrine: Endocrine: Denies fatigue PMFSH Past Medical History Attestation statement: The following information was validated with the patient. Medical History Depression Family History Family History Family/Other Breast cancer Social History Social History Are you a primary palliative care physician to a significant other at home: No Do you presently have visiting nurse or other home services: No Patient Tobacco Use Status: Never used Tobacco Smoked in Last 30 Days: No Advance Directives: No Advance Directives Information Provided: No Patient : Yes Physical Exam ED Vital Signs: Vital Signs - 24 hr 07/02/25 20:04 07/02/25 20:25 Temperature 98.2 F 98.5 F Pulse Rate 90 83 Respiratory Rate 20 17 Blood Pressure 128/70 121/57 L Pulse Oximetry 99 98 Oxygen Delivery Method Room Air Room Air BMI result Body Mass Index 20.8 Const Other: Alert well-appearing Orientation/consciousness: patient oriented x3 Resp Effort & Inspection: normal respiratory effort Cardio Other: normal peripheral perfusion GI Other: soft nontender no guarding no distention Other: normal external genitalia no lesions noted, white /granular like discharge noted, some mucus as well, the cervix is not friable, no bleeding, no lesions, no CMT no adnexal tenderness Skin Other: warm dry no rash Neuro General: patient oriented x3, gait normal, no focal motor deficits and CN's II-XI intact bilaterally Psych Other: cooperative Medical Decision Making Medical Decision Making MDM Narrative: 20-year-old female who is approximately 6 weeks , presents with the abdominal cramping x1 day. Patient states she is prone to vaginal yeast infections, she does have some white discharge. She also noted some brownish discharge that was minimal, that has not progress. No active vaginal bleeding. The patient has yet to initiate care, she just discovered she was 2 days ago. Denies current risk for STD. Denies nausea vomiting dysuria or fever. problem: Early History: Per patient I have considered the following differential diagnoses: Gonorrhea, chlamydia, vaginal candidal infection, BV, trich, cervicitis, TOA, symptoms of early , threatened , ectopic Plan: I am most concerned for ectopic, she has not started care, she has not had imaging, she is early in with pelvic cramping. It is reassuring that she is hemodynamically stable, well-appearing without vaginal bleeding. Obstetric ultrasound pending. Screening labs including hCG quant in process, she just gave a urine sample to be sure she is not having a urinary tract infection. Perform pelvic exam, obtaining a wet prep and GC chlamydia. I have independently reviewed the following tests: Labs: Slight leukocytosis, not anemic, no electrolyte abnormality, beta hCG 6825, urine not infected, wet prep negative, Obstetric ultrasound:Findings: Single intrauterine . CRL: 1.8 mm. EGA: 5 weeks, 1 day. HOLLI: 02/23/2026. Previously established gestational age: N/A . Normal yolk sac . Cardiac activity: Not seen Trace subchorionic bleed. Right ovary measures 5.0 x 2.5 x 2.6 cm. Corpus luteal cyst measuring 2.1 x 1.6 x 1.9 cm. Left ovary measures 3.0 x 1.6 x 2.1 cm. IMPRESSION: 1. Single intrauterine estimated 5 weeks, 1 day gestational age by today's ultrasound criteria. Cardiac activity is not appreciated likely related to early . Short-term follow-up is recommended. 2. No evidence of ovarian torsion. Differential Diagnosis Differential Diagnoses: The differential diagnosis associated with the presentation includes See [facility] Admission/Observation Consideration of admission/observation: Escalation of care including admission/observation considered not applicable Lab Data [facility] Lab Attestation statement: I reviewed the patient's lab results. 07/02/25 20:13 07/02/25 20:13 Labs: Lab Results 07/02/25 07/02/25 07/02/25 Range/Units 20:13 20:41 21:21 WBC 12.3 H (4.8-10.8) X10*3/uL RBC 4.60 (4.20-5.50) X10*6/uL Hgb 11.5 L (12.0-16.0) g/dl Hct 35.9 L (37.0-47.0) % MCV 78.0 L (80.0-98.0) fL MCH 25.0 L (27.0-33.0) pg MCHC 32.0 (31.0-35.0) g/dl RDW 16.7 H (11.0-16.0) % Plt Count 321 (160-400) X10*3/uL MPV 9.7 (9.4-12.3) fL Immature Gran % (Auto) 0.2 (0.0-0.4) % Neut % (Auto) 69.4 (45-73) % Lymph % (Auto) 22.1 (20-40) % Robertson % (Auto) 6.8 (2-11) % Eos % (Auto) 1.1 (0-4) % Baso % (Auto) 0.4 (0-2) % Lymph # (Auto) 2.7 (1.2-4.9) X10*3/uL Robertson # (Auto) 0.8 (0.1-1.2) X10*3/uL Eos # (Auto) 0.1 (0.0-0.4) X10*3/uL Baso # (Auto) 0.1 (0.0-0.2) X10*3/uL Abs Immat Gran (auto) 0.03 (0.00-0.03) X10*3/uL Absolute Neuts (auto) 8.5 H (2.0-8.3) x10*3/uL Absolute Nucleated RBC 0.000 (0.0-0.012) X10*3/uL Nucleated RBC % (auto) 0.0 (0.0-0.2) /100WBC Sodium 138 (135-145) mmol/L Potassium 4.0 (3.3-5.1) mmol/L Chloride 111 H (96-108) mmol/L Carbon Dioxide 21 L (22-29) mmol/L Anion Gap 10 L (12-20) BUN 10 (9-16) mg/dL Creatinine 0.65 (0.5-1.4) mg/dL Estim Creat Clear Calc 140.9 Estimated GFR > 60 Random Glucose 110 (60-115) mg/dL Calcium 9.5 (8.4-10.2) mg/dL Magnesium 1.8 (1.6-2.6) mg/dL Total Bilirubin 0.7 (0.0-1.0) mg/dL Direct Bilirubin 0.2 (0.0-0.5) mg/dL AST 15 (5-31) U/L ALT 11 (0-31) U/L Alkaline Phosphatase 73 (39-117) U/L Total Protein 7.7 (6.5-8.0) g/dL Albumin 4.6 (3.5-5.0) g/dL Beta HCG, Quant 6825 mIU/mL Urine Color Yellow Urine Appearance Cloudy Urine pH 5.5 (5.0-9.0) Ur Specific Leander >= 1.030 H (1.005-1.025) Urine Protein Trace (Neg-Trace) mg/dL Urine Glucose (UA) Negative (Negative) mg/dL Urine Ketones 15 (Negative) mg/dL Urine Blood Moderate (2+) H (Negative) Urine Nitrite Negative (Negative) Ur Leukocyte Esterase Trace H (Negative) Urine RBC 11-20 H (0-2) /HPF Urine WBC 0-5 (0-5) /HPF Ur Squamous Epith Cells 3-5 (0-2) /HPF Urine Bacteria 1+ (None Seen) Hyaline Casts 3-5 (0-2) /LPF Chlam trachomat DNA PCR NOT DETECTED (Not Detect.) Influenza Type A (PCR) NEGATIVE (Negative) Influenza Type B (PCR) NEGATIVE (Negative) N.gonorrhoeae DNA (PCR) NOT DETECTED (Not Detect.) RSV RNA Qual (PCR) NEGATIVE (Negative) SARS-CoV-2 RNA (RT-PCR) NEGATIVE (Negative) T. vaginalis (PCR) NOT DETECTED (Not Detect) Bact vaginosis (PCR) NEGATIVE (Negative) C. krusei/glabrata (PCR) NOT DETECTED (Not Detect) Susannah group (PCR) NOT DETECTED (Not Detect) Radiology Impression Discussion of test interpretation with radiology: I have reviewed the radiologist's reading. Discharge Plan Discharge Clinical Impression: and not yet delivered in first trimester, Vaginal discharge Patient Disposition: Home, Self-Care Instructions: at 7 to 10 Weeks (ED), Vaginal Discharge (ED) Additional Instructions: you were measuring approximately 5 weeks gestation. You need to establish care, call your Ob / content writer tomorrow to schedule your 1st appointment. All of your screening labs were normal, you tested negative for vaginal yeast infection, bacterial vaginosis, gonorrhea and chlamydia. Prescriptions: No Action ferrous sulfate 325 mg (65 mg iron) tablet 325 mg PO DAILY 90 Days Qty: 90 0RF diphenhydramine HCl [Benadryl] 50 mg Capsule 50 mg PO BEDTIME PRN (Reason: allergies) ibuprofen 800 mg tablet 800 mg PO Q8H PRN (Reason: moderate pain) loratadine [Claritin] 10 mg Tablet 10 mg PO DAILY albuterol 90 mcg/actuation Aerosol 90 mcg INHALATION fluticasone propionate [Flovent] 110 mcg/actuation Hfa Aerosol Inhaler 110 inh INHALATION etonogestrel-ethinyl estradiol [NuvaRing] 0.12-0.015 mg/24 hr ring 1 vag ring vaginal Q4W Qty: 3 0RF Rx Instructions: leave in place for 3 weeks of a 4-week cycle terconazole 0.8 % cream 1 appful vaginal BEDTIME 3 Days Qty: 20 0RF etonogestrel-ethinyl estradiol 0.12-0.015 mg/24 hr ring 1 vag ring vaginal Q4W 21 Days Qty: 3 4RF Rx Instructions: leave in place for 3 weeks of a 4-week cycle( 21 days in, 7 days out....) valacyclovir 1 gram tablet 1,000 mg PO BID 10 Days Qty: 20 0RF valacyclovir [Valtrex] 500 mg tablet 500 mg PO BID 3 Days Qty: 6 6RF Print Language: Anguillan
--- OUTSIDE RECORDS SUMMARY | 2025-07-02 22:34 | XMS_ITS | Encounter Summary ---
Author Organization [facility] Address [address] [place] [address] Phone Care Team Providers Care Gallery Assistant Name Role Phone Eliana Graham NP Primary Care Provider Genaro crawford Encounter Details Date Type Department Care Team (Late st Contact Info) Description 03/25/2017 Conversion Encounter [facility] - [address] [phone] Social History Tobacco Use Types Packs/Day Years [...] on filedocumented in this encounter Care Teams Gallery Assistant Relationship Specialty Start Date End Date Eliana Graham NP PCP - General 03/19/17 09/16/22 documented as of this encounter
--- OUTSIDE RECORDS SUMMARY | 2025-07-02 22:34 | XMS_ITS | Clinical Summary ---
Author Organization [facility] Address [address] [place] [address] Phone Care Team Providers Care Track Machine Operator Repairer Name Role Phone Unavailable Primary Care Provider [...] 88 11/26/2010 12:00 AM EDT Temperature 36.4 C (97.6 F) 11/26/2010 12:00 AM EDT Respiratory Rate - - Oxygen Saturation - [...] 2 - Standard) 2019 Influenza Vaccines (#1) 2025 08/14/2010 COVID-19 Vaccine ( season) 2025 Hepatitis B Vaccines Completed 01/14/2004, 2003, 2003 [...]
--- OUTSIDE RECORDS SUMMARY | 2025-07-02 22:34 | XMS_ITS | Encounter Summary ---
Author Organization [facility] Address [address] [place], [place] [phone] Phone Care Team Providers Care Handbag Finisher Name Role Phone Eliana Graham NP Primary Care Provider Genaro crawford Encounter Details Date Type Department Care Team (Late st Contact Info) Description 06/23/[address] [facility] [place] Family Medicine [address] [place] [address] Family Medicine, Physician [facility] [address] [place], [place] [phone] Social History Tobacco Use Types Packs/Day Years [...] on filedocumented in this encounter Care Teams Handbag Finisher Relationship Specialty Start Date End Date Eliana Graham NP PCP - General 03/19/17 09/16/22 documented as of this encounter
--- OUTSIDE RECORDS SUMMARY | 2025-07-02 22:34 | XMS_ITS | Encounter Summary ---
Author Organization [facility] Address [address] [place], [place] [phone] Phone Care Team Providers Care Steel Rod Buster Name Role Phone Eliana Graham NP Primary Care Provider Genaro crawford Encounter Details Date Type Department Care Team (Late st Contact Info) Description 01/05/2011 Documentation [facility] [place] Family Medicine [address] [place] [address] Family Medicine, Physician [facility] [address] [place], [place] [phone] Social History Tobacco Use Types Packs/Day Years [...] on filedocumented in this encounter Care Teams Steel Rod Buster Relationship Specialty Start Date End Date Eliana Graham NP PCP - General 03/19/17 09/16/22 documented as of this encounter
--- OUTSIDE RECORDS SUMMARY | 2025-07-02 22:34 | XMS_ITS | Clinical Summary ---
Author Organization [facility] Address [address] [place] [address] Care Team Providers Care Power Digger Operator Name Role Phone Unavailable Primary Care [...] (1 - 3-dose series) 2018 Meningococcal B Vaccine (1 o f 2 - Standard) 2019 DTaP,Tdap,and Td Vaccines (1 - Tdap) 2022 Hepatitis B Vaccines (1 of 3 - 19+ 3-dose series) 2022 Cervical Cancer Screening: P ap Smear 02/24/2024 Depression Screening 08/09/2024 COVID-19 Vaccine (1 - 2024-2 6 season) 2025 Influenza Vaccine (#1) 2025 RSV Immunization Adult Patie nts (1 - 1-dose 75+ series) 2078 HIB Vaccines Aged Out No longer eligi [...] 5 Years) and At-Risk Patients (6 to 49 Years) Aged Out No longer eligible b ased on patient's age to complete this topic RSV Immunization Patients Un rodo 20 months Aged Out No longer eligible b ased on patient's age to complete this topic Varicella Vaccines Aged Out No longer eligible based on patient's age to complete this topic
[2025-07-02 23:15] LABS: Bacterial Vaginosis PCR NEGATIVE (Negative); Candida Group PCR NOT DETECTED (Not Detect); Candida glab krusei PCR NOT DETECTED (Not Detect); Trichomonas vaginalis PCR NOT DETECTED (Not Detect)
[2025-07-02 23:46] LABS: CT PCR NOT DETECTED (Not Detect.); NG PCR NOT DETECTED (Not Detect.)
[2025-07-03 00:03] VITALS: BP 115/72; PULSE 82; RESP 13; TEMP 37.1; O2SAT 100
[2025-07-03 00:11] VITALS: BP 115/72; PULSE 82; RESP 13; TEMP 37.1; O2SAT 100
== END 2025-07-03 00:12 | disposition home or self-care (01) ==
PROVIDERS: Physician Assistant Medical; Emergency Provider Emergency Medicine; PCP Internal Medicine
DX: O26.891 Other specified pregnancy related conditions, first trimester (principal); Z3A.01 Less than 8 weeks gestation of pregnancy; R10.9 Unspecified abdominal pain; Z03.818 Encounter for observation for suspected exposure to other biological agents ruled out
CPT/HCPCS: 36415; 76801; 80048; 80076; 81001; 81515; 83735; 84702; 85025; 87086; 87491; 87591; 87637; 99284

== ENCOUNTER → 2025-07-02 20:08 | Outpatient (BNV) | payer OTHER, SELFPAY | PROVIDERS: Emergency Provider Emergency Medicine; PCP Internal Medicine; Visit Provider Student in an Organized Health Care Education/Training Program | DX: O26.851 Spotting complicating pregnancy, first trimester (principal); Z3A.01 Less than 8 weeks gestation of pregnancy | CPT/HCPCS: 76801; 76817 ==

== ENCOUNTER 2025-07-09 10:04 | Outpatient (AMB) | payer OTHER, SELFPAY ==
--- NOTE | 2025-07-09 10:19 | A.OFFVIS_ITS ---
Vital Signs 07/09/25 10:21 Height 5 ft 10 in Weight 145 lb BMI 20.8 BP 118/74 Intake Visit Reasons: follow up Allergies Seasonal Allergies Allergy (Mild, Verified 07/02/25 20:08) Itchy Eyes pet dander Allergy (Mild, Uncoded 07/02/25 20:08) itchy HPI Comments Details: Presenting for ED follow-up on 07/08 4 with a pelvic cramping. Patient was diagnose with on 07/02 the following workup was done in the ER: H&H 11.5/35.9 HCG 6824 GC/CT with BV panel negative Pelvic ultrasound showed the following: Findings: Single intrauterine . CRL: 1.8 mm. EGA: 5 weeks, 1 day. HOLLI: 02/23/2026. Previously established gestational age: N/A . Normal yolk sac . Cardiac activity: Not seen Trace subchorionic bleed. Right ovary measures 5.0 x 2.5 x 2.6 cm. Corpus luteal cyst measuring 2.1 x 1.6 x 1.9 cm. Left ovary measures 3.0 x 1.6 x 2.1 cm. [facility] Medical History Depression Family History Family/Other Breast cancer Social History Are you a primary livestock caretaker to a significant other at home: No Do you presently have visiting nurse or other home services: No Patient Tobacco Use Status: Never used Tobacco Female Reproductive History Menstrual Age of Menarche: 8 Review of Systems Const All systems reviewed & are unremarkable except as noted in HPI and below Reports as per HPI and Reports no additional complaints GI Reports no additional complaints Reports no additional complaints Assessment & Plan Assessment & Plan (1) Early stage of : Code(s): Z34.90 - Encounter for supervision of normal , unspecified, unspecified trimester Category: Medical Plan: Will repeat ultrasound 11 days from 07/02 in order to confirm viability SAB warnings were given to patient, instructions given the patient to call or go to emergency room in case of pelvic pain and or bleeding. vitamin tablet p.o. q.d. Orders: Orders US OB <= 14 weeks fetus 07/13/25 Z34.90 - Encounter for supervision of normal , unspecified, unspecified trimester Coding Level of Care Code Est Pt Level 3 (66933) Diagnoses Early stage of Z34.90
[2025-07-09 10:21] VITALS: BP 118/74; BMI 20.8
--- OUTSIDE RECORDS SUMMARY | 2025-07-09 12:19 | XMS_ITS | Encounter Summary ---
Author Organization [facility] Address [address] [place], [place] [phone] Phone Care Team Providers Care Behavioral Pediatrician Name Role Phone Eliana Graham NP Primary Care Provider Genaro crawford Encounter Details Date Type Department Care Team (Late st Contact Info) Description 06/23/2011 Documentation [facility] [place] [address] [place] [address] Family Medicine, Physician [facility] [address] [place], [place] [phone] Social History Tobacco Use Types Packs/Day Years [...] on filedocumented in this encounter Care Teams Behavioral Pediatrician Relationship Specialty Start Date End Date Eliana Graham NP PCP - General 03/19/17 09/16/22 documented as of this encounter
--- OUTSIDE RECORDS SUMMARY | 2025-07-09 12:19 | XMS_ITS | Encounter Summary ---
Author Organization [facility] Address [address] [place] [address] Phone Care Team Providers Care Box Sorter Name Role Phone Eliana Graham NP Primary Care Provider Genaro crawford Encounter Details Date Type Department Care Team (Late st Contact Info) Description 01/05/2011 [place] [facility] [place] [address] [place] [address] Family Medicine, Physician [facility] [address] [place], [place] [phone] Social History Tobacco Use Types Packs/Day Years [...] on filedocumented in this encounter Care Teams Box Sorter Relationship Specialty Start Date End Date Eliana Graham NP PCP - General 03/19/17 09/16/22 documented as of this encounter
--- OUTSIDE RECORDS SUMMARY | 2025-07-09 12:19 | XMS_ITS | Encounter Summary ---
Author Organization [facility] Address [address] [place] [address] Phone Care Team Providers Care Heavy Mobile Equipment Operator Name Role Phone Eliana Graham NP Primary Care Provider Genaro crawford Encounter Details Date Type Department Care Team (Late st Contact Info) Description 03/25/2017 Conversion Encounter [facility] - [address] [phone] Social History Tobacco Use Types Packs/Day Years [...] on filedocumented in this encounter Care Teams Heavy Mobile Equipment Operator Relationship Specialty Start Date End Date Eliana Graham NP PCP - General 03/19/17 09/16/22 documented as of this encounter
--- OUTSIDE RECORDS SUMMARY | 2025-07-09 12:19 | XMS_ITS | Clinical Summary ---
Author Organization [facility] Address [address] [place] [address] Phone Care Team Providers Care Geriatric Social Work Professor Name Role Phone Unavailable Primary Care Provider [...]
== END 2025-07-09 10:30 | disposition home or self-care (01) ==
LOC: HO.HWS 10:05
PROVIDERS: PCP Internal Medicine; Visit Provider Obstetrics & Gynecology
DX: Z34.90 Encounter for supervision of normal pregnancy, unspecified, unspecified trimester (principal)
CPT/HCPCS: 99213

== ENCOUNTER → 2025-07-09 10:04 | Outpatient (BNVA) | payer OTHER, SELFPAY | PROVIDERS: PCP Internal Medicine; Visit Provider Obstetrics & Gynecology | DX: Z34.91 Encounter for supervision of normal pregnancy, unspecified, first trimester (principal) | CPT/HCPCS: 99212 ==

== ENCOUNTER 2025-07-13 08:00 | Outpatient (REF) | payer OTHER, SELFPAY ==
--- NOTE | ~2025-07-13 | US_ITS ---
EXAMINATION: US OBSTETRICAL ULTRASOUND CLINICAL INFORMATION: Size and dates COMPARISON: July 02, 2025 LMP: Not provided. TECHNIQUE: Real-time transabdominal and transvaginal obstetric pelvic ultrasound performed using grayscale and color Doppler technique with a curvilinear transducer. FINDINGS: Single intrauterine gestational sac with a pole and a yolk sac. HR: 128 beats per minute. CRL (crown rump length): 0.58 cm (6 weeks and 3 days +/- 4 days). HOLLI (estimated date of delivery): 03/05/2026 +/- 4 days. MATERNAL ADNEXA: The right maternal ovary measures 4 x 2 x 3 cm. Volume: 8 cc. Normal flow on color Doppler interrogation. No solid or cystic lesion. The left maternal ovary measures 3 x 2 x 2 cm. Volume: 8 cc. Scattered follicles. No solid or cystic lesion. No free fluid in the cul-de-sac. . US/US OB pelvic and transvaginal IMPRESSION: 1. Single viable intrauterine gestation with ultrasound gestational age of 6 weeks and 3 days +/- 4 days. 2. Estimated date of delivery is 03/05/2026 +/- 4 days. Electronically signed by: Sylvester Cooper MD 07/13/2025 10:27 AM OSVALDO
--- OUTSIDE RECORDS SUMMARY | 2025-07-13 08:09 | XMS_ITS | Clinical Summary ---
Author Organization [facility] Address [address] [place] [address] Phone Care Team Providers Care Ship'S Engineer Name Role Phone Unavailable Primary Care Provider [...]
--- OUTSIDE RECORDS SUMMARY | 2025-07-13 08:10 | XMS_ITS | Encounter Summary ---
Author Organization [facility] Address [address] [place] [address] Phone Care Team Providers Care Breakdown Person Name Role Phone Eliana Graham NP Primary Care Provider Genaro crawford Encounter Details Date Type Department Care Team (Late st Contact Info) Description 03/25/2017 Conversion Encounter [facility] - [address] [phone] Social History Tobacco Use Types Packs/Day Years [...] on filedocumented in this encounter Care Teams Breakdown Person Relationship Specialty Start Date End Date Eliana Graham NP PCP - General 03/19/17 09/16/22 documented as of this encounter
--- OUTSIDE RECORDS SUMMARY | 2025-07-13 08:10 | XMS_ITS | Encounter Summary ---
Author Organization [facility] Address [address] [place], [place] [phone] Phone Care Team Providers Care Flight Follower Name Role Phone Eliana Graham NP Primary Care Provider Genaro crawford Encounter Details Date Type Department Care Team (Late st Contact Info) Description 06/23/2011 Documentation [facility] [place] Family Medicine [address] [place] [address] Family Medicine, Physician [facility] [address] [place], [place] [address] Social History Tobacco Use Types Packs/Day Years [...] on filedocumented in this encounter Care Teams Flight Follower Relationship Specialty Start Date End Date Eliana Graham NP PCP - General 03/19/17 09/16/22 documented as of this encounter
--- OUTSIDE RECORDS SUMMARY | 2025-07-13 08:10 | XMS_ITS | Encounter Summary ---
Author Organization [facility] Address [address] [place], [place] [phone] Phone Care Team Providers Care High School Academic Coach Name Role Phone Eliana Graham NP Primary Care Provider Genaro crawford Encounter Details Date Type Department Care Team (Late st Contact Info) Description 01/05/2011 Documentation [facility] [place] Family Medicine [address] [place] [address] Family Medicine, Physician [facility] [address] [place], [place] [address] Social History Tobacco Use Types Packs/Day Years [...] on filedocumented in this encounter Care Teams High School Academic Coach Relationship Specialty Start Date End Date Eliana Graham NP PCP - General 03/19/17 09/16/22 documented as of this encounter
== END 2025-07-13 08:01 | disposition home or self-care (01) ==
LOC: HO.US 08:00
PROVIDERS: PCP Internal Medicine; Visit Provider Obstetrics & Gynecology
DX: Z34.91 Encounter for supervision of normal pregnancy, unspecified, first trimester (principal)
CPT/HCPCS: 76801; 76817

== ENCOUNTER → 2025-07-13 08:02 | Outpatient (BNV) | payer OTHER, SELFPAY | PROVIDERS: PCP Internal Medicine; Visit Provider Radiology Diagnostic Radiology | DX: Z34.01 Encounter for supervision of normal first pregnancy, first trimester (principal); Z3A.01 Less than 8 weeks gestation of pregnancy | CPT/HCPCS: 76801; 76817 ==